=== PATIENT | male | born 1960 | race Caucasian/White ===

== ENCOUNTER → 2021-01-03 03:09 | Outpatient (CLI) | payer OTHER, SELFPAY ==
[2021-01-03 20:35] LABS: SARS-CoV-2 RNA PCR Negative
== END ==
PROVIDERS: Visit Provider Specialist
DX: Z01.812 Encounter for preprocedural laboratory examination (principal); Z20.822 Contact with and (suspected) exposure to COVID-19
CPT/HCPCS: C9803; U0003; U0005

== ENCOUNTER 2021-01-06 01:02 | Day surgery (SDC) | payer OTHER, SELFPAY ==
[2021-01-05 10:04] VITALS: BMI 31.5
[2021-01-06] VITALS (9 sets, daily range): BP systolic 113–141; BP diastolic 56–74; PULSE 68–81; RESP 15–16; TEMP 36.2–37.1; O2SAT 98–100
[2021-01-06 08:38] LABS: Basophils Percent Auto 0.7 % (0.2-1.2); Eosinophils Absolute Auto 0.2 K/mm3 (0-0.3); Eosinophils Percent Auto 5.3 % (0-4.4); Hemoglobin 11.1 g/dL (14.0-18.0); Immature Granulocyte Absolute 0.01 K/mm3 (0.00-0.031); Immature Granulocyte Percent A 0.2 % (0-0.5); Lymphocytes Percent Auto 16.9 % (18.3-44.2); Mean Corpuscular HGB Conc 31.7 g/dl (32-36); Mean Corpuscular Hemoglobin 27.8 pg (26-34); Mean Corpuscular Volume 87.7 fl (80-100); Monocytes Absolute Auto 0.5 K/mm3 (0.1-0.6); Monocytes Percent Auto 12.3 % (2.6-8.5); Neutrophils Absolute Auto 2.7 K/mm3 (1.3-6.7); Neutrophils Percent Auto 64.6 % (45.5-73.1); Platelet Count Result 123 k/mm3 (150-375); Red Blood Count 3.99 M/mm3 (4.6-6.20); Red Cell Distribution Width 15.9 % (11.5-14.5); White Blood Count 4.2 K/mm3 (4.5-10.0)
[2021-01-06 08:51] LABS: Anion Gap 3 mmol/L (8-16); Blood Urea Nitrogen 8 mg/dL (9-20); Calcium 8.9 mg/dL (8.4-10.2); Carbon Dioxide 25 mmol/L (22-30); Chloride 111 mmol/L (98-107); Estimated CRCL calculation 132 ml/min; Estimated Glomerular Filt Rate > 60; Glucose 107 mg/dL (75-110); Potassium 4.3 mmol/L (3.4-5.0); Sodium 139 mmol/L (137-145)
--- NOTE | 2021-01-06 09:17 | WPDMODSED ---
Moderate Sedation Note-Pt Data Patient Data Diagnosis: Exertional dyspnea/abnormal stress test Present Complaint: This is a 60-year-old patient reporting symptoms of exertional dyspnea. No previous documented history of cardiac disease. A nuclear stress test was performed at the request of his PCP which suggests the possibility of a previous anterior infarction. Because of this and angiogram has been recommended and scheduled for today. Procedure to be performed/Plan: Left heart catheterization Allergies Allergy/AdvReac Type Severity Reaction Status Date / Time Penicillins AdvReac Unknown Verified 01/06/21 08:54 Home Medications Medication Instructions Recorded Confirmed Type albuterol 90 mcg INHALATION PRN PRN 01/05/21 01/05/21 History amlodipine 5 mg PO DAILY 01/05/21 01/06/21 History budesonide-formoterol [Symbicort] 1 inh INHALATION PRN PRN 01/05/21 01/05/21 History colesevelam [WelChol] 1,875 mg PO BID 01/05/21 01/05/21 History dapagliflozin [Farxiga] 5 mg PO DAILY 01/05/21 01/05/21 History dulaglutide [Trulicity] 0.75 mg SUBCUT WEEKLY 01/05/21 01/05/21 History losartan 50 mg PO DAILY 01/05/21 01/06/21 History montelukast 10 mg PO DAILY 01/05/21 01/05/21 History omeprazole 40 mg PO DAILY 01/05/21 01/05/21 History Current Medications: Active Medications Sodium Chloride (Normal Saline Iv) 500 mls @ 100 mls/hr IV CONT .Q5H SOUTH Sedation/Anesthesia: No previous sedation/anesthesia problems (including family history). [facility] Social History Social History Smoking status: Never smoker Substance use: never Substance use type: does not use Living arrangements: with family Spiritual care concerns: No Mod Sed Physical Exam Physical Exam Pre Procedural Exam: Normal: Appearance, Neck, Throat, Airway, Lungs, Heart Size, Heart Rate, Heart Rhythm, Neuro Exam and Extremities Hours since solid foods: 12 Hours since liquid intake: 12 Internal Medicine - PN: Obj Da Vital Signs Vital Signs: Vital Signs - 24 hr 01/06/21 08:55 Temperature 37.1 C Pulse Rate 68 Respiratory Rate 15 Blood Pressure 113/74 Pulse Oximetry 98 Meds/Results Medications: Active Medications Generic Name Dose Route Start Last Admin Trade Name Freq PRN Reason Stop Dose Admin Sodium Chloride 500 mls @ 100 mls/hr 01/06/21 08:00 Normal Saline Iv IV CONT .Q5H SOUTH Labs CBC & Chem 7: 01/06/21 08:29 01/06/21 08:29 Labs: Laboratory Results - last 24 hr 01/06/21 01/06/21 08:29 08:29 WBC 4.2 L RBC 3.99 L Hgb 11.1 L Hct 35.0 L MCV 87.7 MCH 27.8 MCHC 31.7 L RDW 15.9 H Plt Count 123 L MPV 10.0 Immature Gran % (Auto) 0.2 Neut % (Auto) 64.6 Lymph % (Auto) 16.9 L Thurston % (Auto) 12.3 H Eos % (Auto) 5.3 H Baso % (Auto) 0.7 Lymph # (Auto) 0.70 L Thurston # (Auto) 0.5 Eos # (Auto) 0.2 Baso # (Auto) 0.0 Abs Immat Gran (auto) 0.01 Absolute Neuts (auto) 2.7 Absolute Nucleated RBC 0.0 Nucleated RBC % 0.0 Sodium 139 Potassium 4.3 Chloride 111 H Carbon Dioxide 25 Anion Gap 3 L BUN 8 L Creatinine 0.60 L Estim Creat Clear Calc 132 Estimated GFR > 60 Glucose 107 Calcium 8.9 ASA Classification/Sedation ASA Classification/Sedation ASA Class: II Emergent: No Risks: Risks, benefits and alternatives explained and patient/family accepted plan for sedation. Patient re-evaluated immediately prior to sedation.
--- NOTE | 2021-01-06 10:16 | WPDCARDPROC ---
Cardiac Cath Procedure Note Date of procedure:: 01/06/21 Performing physician:: Kai Ham MD Indication:: Exertional dyspnea, abnormal stress test Brief clinical history:: this is a 60-year-old man with a history of hypertension and dyslipidemia reporting exertional dyspnea of about 4-6 months of onset. Symptoms are worsening recently. Nuclear stress test was significantly abnormal prompting recommendation for angiography. Procedure Procedure performed:: Left ventriculography coronary angiography Angio-Seal to right femoral artery Sedation/Medication given:: fentanyl 50 mg Versed 2 mg case start time 9:49 a.m. case end time 10:08 a.m. sedation provided by Simran Vaca RN, trained observer Access site:: right femoral artery Estimated blood loss:: 10-15 cc Procedure note:: patient was brought to the cardiac catheterization lab in the postabsorptive state where the right femoral triangle was prepared and draped in the usual fashion. Anesthesia was provided with 1% lidocaine infiltrated locally. Using the modified Seldinger technique the right femoral artery was punctured and a 5 [place] vascular sheath was placed. After this left heart catheterization was carried out. A 5 [place] angled pigtail catheter was used to document left-sided hemodynamics and to injected LV g in the HAYES projection. After this the pigtail catheter was withdrawn. Five [place] FL4 catheter was used to engage inject the left coronary artery in multiple projections. After this a 5 [place] JR4 catheter was used to engage inject the right coronary artery. Following this the procedure was terminated the femoral artery was injected using the sheath for an angiogram and then a 6 [place] Angio-Seal device was deployed with a good hemostatic result. He left the manager labor delivery with no evidence of groin hematoma and no procedural complication. Procedure was tolerated well. Findings:: Hemodynamics: Central aortic pressure is 141/61 left ventricle 141/0 end-diastolic of 16 there is no systolic gradient upon pullback across the aortic valve. Left ventricle: During the left ventricular injection the patient had a run of ventricular tachycardia. After that run was over the LV contracts very well in all segments with no significant wall motion abnormalities and an ejection fraction I would visually estimated to be 65-70% The left coronary artery is moderately calcified proximally. The left main coronary artery is medium in caliber there is mild atherosclerotic narrowing of the distal portion of the left main potentially 30-40% stenosis. The left anterior descending is a medium caliber vessel extending down to around the apex. There is severe proximal atherosclerotic disease in the proximal LAD and in the proximal diagonal branch. There is 90-95% stenosis in the LAD after the major diagonal. The proximal portion of the diagonal has an area of ectatic aneurysmal dilatation as well. There is ANN MARIE 2 flow in the LAD distal to this high-grade lesion. The diagonal branch itself is a bifurcating vessel that has a proximal 99% stenosis. Circumflex is a medium caliber vessel there is a single bifurcating marginal branch that essentially is OM1 and OM2. Proximally this a bifurcating vessel has 80-90% stenosis. At the bifurcation point Marc branch which would be called OM1 has a proximal 90-95% stenosis. The more distal of the 2 branches has no significant lesion. The AV groove portion of the circumflex which is rather small has 80% diffuse stenosis in its midportion. The right coronary artery is large caliber dominant to the posterior circulation. The majority of the right coronary artery as diffuse mild luminal irregularities. In the 2nd portion of the RCA there is a spontaneous dissection with an area of ectatic dilatation. There is ANN MARIE 3 flow through this lesion however Conclusion:: 1. severe three-vessel coronary artery disease as desc
--- NOTE | 2021-01-06 14:44 | SUR.PHASEII ---
All D/C instructions reviewed with patient,allquestions answered at this time.
== END 2021-01-06 14:50 | disposition home or self-care (01) ==
PROVIDERS: PCP Physician Assistant; Visit Provider Specialist
PROC: 4A023N7 Measurement of Cardiac Sampling and Pressure, Left Heart, Percutaneous Approach (ICD-10-PCS; CPT 93452; principal; 2021-01-06 08:30)
DX: R94.39 Abnormal result of other cardiovascular function study (principal); R06.00 Dyspnea, unspecified; Z79.51 Long term (current) use of inhaled steroids; I10 Essential (primary) hypertension; E78.5 Hyperlipidemia, unspecified; I25.10 Atherosclerotic heart disease of native coronary artery without angina pectoris
CPT/HCPCS: 36415; 80048; 85025; 93458; C1760; C1887; C1894; C9803; G0269; J1644; J2250; J3010; J7040; U0003; U0005

== ENCOUNTER 2021-05-18 14:00 | Outpatient (RCR) | payer OTHER, SELFPAY | END 2021-05-18 19:30 | disposition home or self-care (01) | LOC: ANHCPREHAB 14:00 | PROVIDERS: PCP Physician Assistant; Visit Provider Specialist | DX: Z95.1 Presence of aortocoronary bypass graft (principal) | CPT/HCPCS: 93798 ==

== ENCOUNTER → 2021-05-29 08:48 | Outpatient (CLI) | payer OTHER, SELFPAY ==
[2021-05-29 20:15] LABS: SARS-CoV-2 RNA PCR Negative
== END ==
PROVIDERS: PCP Physician Assistant; Visit Provider Physician Assistant
DX: R68.89 Other general symptoms and signs (principal); Z20.822 Contact with and (suspected) exposure to COVID-19
CPT/HCPCS: C9803; U0003; U0005

== ENCOUNTER → 2021-11-25 08:03 | Outpatient (CLI) | payer OTHER, SELFPAY ==
[2021-11-25 23:19] LABS: SARS-CoV-2 RNA PCR Positive
== END ==
PROVIDERS: PCP Physician Assistant; Visit Provider Physician Assistant
DX: U07.1 COVID-19 (principal)
CPT/HCPCS: C9803; U0003; U0005

== ENCOUNTER 2022-01-01 00:32 | Day surgery (SDC) | payer OTHER, SELFPAY ==
[2021-12-21 08:36] VITALS: BMI 28.1
[2022-01-01 12:19] VITALS: BP 143/58; PULSE 58; RESP 17; TEMP 36.3; O2SAT 100
[2022-01-01] MEDS: LACTATED RINGERS 1,000 ML 150 ML IV CONT (12:32)
--- NOTE | 2022-01-01 12:36 | WPDGICN ---
Assessment and Plan Assessment and plan (1) Anemia: Code(s): D64.9 - Anemia, unspecified Status: Acute Assessment and Plan: Colonoscopy with possible biopsy or polypectomy or cautery or injection of substances. (2) GERD (gastroesophageal reflux disease): Code(s): K21.9 - Gastro-esophageal reflux disease without esophagitis Status: Acute Assessment and Plan: He has been taking omeprazole 40 mg daily but skipped it todayEGD with possible biopsy or dilatation or cautery. GI Consult Note Consult date/time: 01/01/22 12:36 HPI: Kai Null is a 61 year old male Who has been found to be anemic. His last hemoglobin on record was 11. He does not see blood in his stools. He also has acid reflux symptoms. He takes omeprazole 40 mg daily. He takes aspirin tablet once daily since he had a 4 vessel coronary artery bypass 1 year ago. Review of Systems Review of Systems: All systems reviewed & are unremarkable except as noted in HPI and below PMFSH Family History Family History Father High cholesterol Hypertension Heart disease Heart attack Diabetes mellitus Pulmonary disease Mother High cholesterol Hypertension Heart disease Heart attack Diabetes mellitus Pulmonary disease Social History Social History Smoking status: Never smoker Alcohol intake: current Alcohol use details: 1 per month Substance use: never Substance use type: does not use Living arrangements: with family Gender identity (if verbalized by the patient): Male Spiritual care concerns: No Meds Home Medications and Allergies Home Medications Medication Instructions Recorded Confirmed Type albuterol 90 mcg INHALATION PRN PRN 01/05/21 12/21/21 History budesonide-formoterol [Symbicort] 1 inh INHALATION PRN PRN 01/05/21 12/21/21 History colesevelam [WelChol] 1,875 mg PO BID 01/05/21 12/21/21 History dapagliflozin [Farxiga] 5 mg PO DAILY 01/05/21 12/21/21 History dulaglutide [Trulicity] 0.75 mg SUBCUT WEEKLY 01/05/21 12/21/21 History montelukast 10 mg PO DAILY 01/05/21 12/21/21 History omeprazole 40 mg PO DAILY 01/05/21 12/21/21 History aspirin 325 mg PO DAILY 02/20/21 12/21/21 History metoprolol tartrate 25 mg PO DAILY 02/20/21 12/21/21 History atorvastatin 40 mg PO DAILY 12/21/21 12/21/21 History ropinirole 2 mg PO DAILY 12/21/21 12/21/21 History Allergies Allergy/AdvReac Type Severity Reaction Status Date / Time Penicillins AdvReac Unknown Verified 01/01/22 12:18 Vital Signs Vital Signs - 24 hr 01/01/22 12:19 Temperature 36.3 C L Pulse Rate 58 L Respiratory Rate 17 Blood Pressure 143/58 H Pulse Oximetry 100 Exam Resp: Auscultation: clear to auscultation bilaterally Cardio: Rate: regular rate Rhythm: regular rhythm GI: GI Palp: Yes Soft to palpation and No Tenderness to palpation present (GI)
[2022-01-01] MEDS: BENZOCAINE (*SP) 60 ML SPRAY CAN (HURRICAINE) 1 SPRAY MUCOUS MEM (13:13)
--- NOTE | 2022-01-01 13:25 | SUR.OPER ---
EGD ENDED 1219, COLONOSCOPY STARTED 1324
[2022-01-01 13:34] VITALS: BP 114/41; PULSE 63; RESP 25; O2SAT 99
[2022-01-01 13:44] VITALS: BP 128/50; PULSE 62; RESP 21; O2SAT 100
[2022-01-01 13:48] LABS: Glucose Point of Care 78 mg/dl (65-105)
[2022-01-01 13:48] LABS: Glucose Point of Care 76 mg/dl (65-105)
[2022-01-01 13:54] VITALS: BP 140/67; PULSE 57; RESP 17; O2SAT 100
== END 2022-01-01 14:04 | disposition home or self-care (01) ==
PROVIDERS: PCP Physician Assistant; Visit Provider Internal Medicine Gastroenterology
PROC: 0DJ08ZZ Inspection of Upper Intestinal Tract, Via Natural or Artificial Opening Endoscopic (ICD-10-PCS; CPT 43235; principal; 2022-01-01 13:30)
DX: Z12.11 Encounter for screening for malignant neoplasm of colon (principal); K29.80 Duodenitis without bleeding; D64.9 Anemia, unspecified; K21.9 Gastro-esophageal reflux disease without esophagitis; Z95.1 Presence of aortocoronary bypass graft; Z79.82 Long term (current) use of aspirin; Z79.51 Long term (current) use of inhaled steroids; Z79.84 Long term (current) use of oral hypoglycemic drugs
CPT/HCPCS: 45378; 43239; 82948; 88305; J2704; J7120

== ENCOUNTER 2022-01-11 15:26 | Outpatient (CLI) | payer OTHER, SELFPAY ==
--- NOTE | ~2022-01-11 | CT_ITS ---
EXAMINATION: CT abdomen pelvis w con DATE: 01/11/2022 16:04 INDICATION: Elevated liver enzymes. Abdomen pain. TECHNIQUE: Computed tomography (CT) of the abdomen and pelvis was performed with 100 cc Omnipaque 350 intravenous contrast. The dose-length product was 976.87 mGy-cm. Automated exposure control and iter ative reconstruction technique were employed. COMPARISON: Ultrasound dated 01/11/2022. FINDINGS: There is cirrhosis of the liver with evidence for portal hypertension. There is splenomegal y. Multiple collateral vessels are noted in the upper abdomen. There is small amount of ascites. The pancreas, adrenal glands and right kidney are unremarkable. There is a 2 mm nonobstructing left renal stone. There is moderate fluid throughout the small bowel with air-fluid levels, most likely ileus. There is colonic fecal loading. No free air. Gallbladder is present. Mild subcutaneous edema. There a re gallstones. Mild-moderate lumbar spondylosis. Small fat-containing umbilical hernia. IMPRESSION: 1. Cirrhosis with portal hypertension and splenomegaly. Small amount of ascites. 2: Nonobstructing 2 mm left renal stone. 3: Cholelithiasis. 4: Nonspecific air-fluid levels throughout the small bowel, likely ileus. Partial obstruction less f avored although not excluded. Reviewed, dictated and finalized at location A. SUGAR CUTTER IMPRESSION: 1. Cirrhosis with portal hypertension and splenomegaly. Small amount of ascites . 2: Nonobstructing 2 mm left renal stone. 3: Cholelithiasis. 4: Nonspecific air-fluid levels throughout the small bowel, likely ileus. Part ial obstruction less favored although not excluded.
[2022-01-11 15:52] LABS: Estimated Glomerular Filt Rate > 60
== END 2022-01-11 15:27 ==
PROVIDERS: PCP Physician Assistant; Visit Provider Internal Medicine Medical Oncology
DX: R74.01 Elevation of levels of liver transaminase levels (principal); R63.4 Abnormal weight loss; R10.9 Unspecified abdominal pain; R16.1 Splenomegaly, not elsewhere classified; K74.60 Unspecified cirrhosis of liver; N20.0 Calculus of kidney; K80.20 Calculus of gallbladder without cholecystitis without obstruction; M47.816 Spondylosis without myelopathy or radiculopathy, lumbar region
CPT/HCPCS: 74177; Q9967

== ENCOUNTER 2022-03-12 15:22 | Outpatient (CLI) | payer OTHER, SELFPAY ==
--- NOTE | ~2022-03-12 | CT_ITS ---
EXAMINATION: CT abdomen pelvis w con INDICATION: Right inguinal hernia TECHNIQUE: Computed tomographic images of the abdomen and pelvis were obtained after the administrati on of 100 cc of Omnipaque 350 intravenous contrast. The dose-length product (DLP) was 743.10 mGy-cm. Automated exposure control and iterative reconstruction technique were employed. COMPARISON: 01/11/2022 FINDINGS: Minimal dependent atelectasis is present in the lung bases. The heart size is normal. There is nodularity of the liver surface. Portal hypertension is noted as evidenced by enlargement of the portal vein, splenomegaly, and upper abdominal and periesophageal varices. Stones are present in the nondistended gallbladder. The pancreas and adrenal glands are normal. The kidneys are unremarkable. N o pathologically enlarged abdominal or pelvic lymph nodes are identified. There is no free intraperit sky gas or evidence of bowel obstruction. There is a small right inguinal hernia containing fat and a small volume of ascites. There is a small umbilical hernia containing fat. There is moderate lumba r spondylosis. IMPRESSION: 1. Small right inguinal hernia containing fat and a small volume of ascites. 2. Cirrhosis with portal hypertension. 3. Cholelithiasis. Reviewed, dictated and finalized at location A.
[2022-03-12 15:38] LABS: Estimated Glomerular Filt Rate > 60
== END 2022-03-12 15:23 ==
PROVIDERS: PCP Physician Assistant; Visit Provider Physician Assistant
DX: K40.90 Unilateral inguinal hernia, without obstruction or gangrene, not specified as recurrent (principal); K80.20 Calculus of gallbladder without cholecystitis without obstruction; K74.60 Unspecified cirrhosis of liver; K76.6 Portal hypertension
CPT/HCPCS: 74177; Q9967

== ENCOUNTER 2022-04-06 10:26 | Outpatient (CLI) | payer OTHER, SELFPAY ==
--- NOTE | 2022-04-06 10:37 | ECG_ITS ---
Measurements Intervals Pitcher Rate: 65 P: 68 AL: 153 QRS: -14 QRSD: 102 T: 43 QT: 406 QTc: 423 Interpretive Statements SINUS RHYTHM POSSIBLE LEFT ATRIAL ENLARGEMENT BASELINE ARTIFACT- I, II, III, AVR, AVL BORDERLINE ECG Electronically Signed On 04-06-2022 17:12:11 CDT by Arturo Lambert D.O.
[2022-04-06 10:58] LABS: Basophils Percent Auto 0.6 % (0.2-1.2); Eosinophils Absolute Auto 0.2 K/mm3 (0-0.3); Eosinophils Percent Auto 6.6 % (0-4.4); Hematocrit 34.1 % (42.0-52.0); Hemoglobin 10.8 g/dL (14.0-18.0); Immature Granulocyte Absolute 0.01 K/mm3 (0.00-0.031); Immature Granulocyte Percent A 0.3 % (0-0.5); Lymphocytes Absolute Auto 0.58 K/mm3 (0.9-3.2); Lymphocytes Percent Auto 17.5 % (18.3-44.2); Mean Corpuscular HGB Conc 31.7 g/dl (32-36); Mean Corpuscular Hemoglobin 31.1 pg (26-34); Mean Corpuscular Volume 98.3 fl (80-100); Mean Platelet Volume 11.8 fl (7.4-10.4); Monocytes Absolute Auto 0.5 K/mm3 (0.1-0.6); Monocytes Percent Auto 13.6 % (2.6-8.5); Neutrophils Percent Auto 61.4 % (45.5-73.1); Platelet Count Result 74 k/mm3 (150-375); Red Blood Count 3.47 M/mm3 (4.6-6.20); Red Cell Distribution Width 15.2 % (11.5-14.5); White Blood Count 3.3 K/mm3 (4.5-10.0)
[2022-04-06 11:07] LABS: INR 1.4; Prothrombin Time 16.3 Seconds (11.1-14.7)
[2022-04-06 11:17] LABS: Anion Gap 3 mmol/L (8-16); Blood Urea Nitrogen 11 mg/dL (9-20); Carbon Dioxide 20 mmol/L (22-30); Chloride 118 mmol/L (98-107); Estimated Glomerular Filt Rate > 60; Glucose 75 mg/dL (65-110); Sodium 141 mmol/L (137-145)
== END 2022-04-06 10:27 | disposition home or self-care (01) ==
LOC: ANHSURGERY 10:29
PROVIDERS: Anesthesiology; PCP Physician Assistant; Visit Provider Surgery
DX: Z01.818 Encounter for other preprocedural examination (principal); E11.9 Type 2 diabetes mellitus without complications; I10 Essential (primary) hypertension; K40.90 Unilateral inguinal hernia, without obstruction or gangrene, not specified as recurrent
CPT/HCPCS: 36415; 80048; 85025; 85610; 86850; 86900; 86901; 93005

== ENCOUNTER 2022-06-25 12:13 | Emergency (ER) | payer OTHER, SELFPAY ==
--- NOTE | ~2022-06-25 | CT_ITS ---
EXAMINATION: CT abdomen pelvis wo con DATE: 06/25/2022 14:18 INDICATION: Microscopic hematuria and groin pain TECHNIQUE: Computed tomography (CT) of the abdomen and pelvis was performed without intravenous contr ast. Automated exposure control and iterative reconstruction technique were employed. The dose-length product was 472.72 mGy-cm. COMPARISON: 03/12/2022 FINDINGS: Lung bases are clear. Visualized inferior heart is normal. Postoperative change of prior median antoine otomy and likely coronary artery bypass grafting. No pericardial or pleural effusion. Shrunken, nodul ar cirrhotic liver. Secondary portal venous hypertension with splenomegaly, splenorenal collaterals a nd gastroesophageal varices. Multiple calcified gallstones layering in the dependent neck of the othe rwise normal-appearing gallbladder. No gallbladder dilation, wall thickening or pericholecystic infla mmatory stranding to suggest acute cholecystitis. Pancreas and bilateral adrenal glands are normal. 2 mm nonobstructing stone at the upper pole calyx of the left kidney. No other urolithiasis at the nor mal right kidney or along the course of the bilateral ureters. No hydronephrosis. Bladder is normal. Normal appendix. No bowel obstruction. There are few scattered colonic diverticula without adjacent i nflammatory change to suggest diverticular colitis. Tiny fat-containing umbilical hernia and small fa t-containing indirect right inguinal hernia. There is mild mesenteric edema and minimal pelvic ascite s. No free intraperitoneal gas. No pathologically enlarged abdominal or pelvic lymphadenopathy. Mild lumbar dextrocurvature with moderate spondylosis. IMPRESSION: 1. Cirrhosis. 2. Splenomegaly, splenorenal collaterals and gastroesophageal varices consistent with secondary jose r l venous hypertension. 3. Cholelithiasis. 4. Nonobstructing 2 mm left renal stone. 5. Very small fat-containing umbilical hernia and small fat-containing right indirect inguinal hernia . Reviewed, dictated and finalized at location A. IMPRESSION: 1. Cirrhosis. 2. Splenomegaly, splenorenal collaterals and gastroesophageal varices consisten t with secondary portal venous hypertension. 3. Cholelithiasis. 4. Nonobstructing 2 mm left renal stone. 5. Very small fat-containing umbilical hernia and small fat-containing right in direct inguinal hernia.
[2022-06-25 12:16] VITALS: BP 156/61; PULSE 63; RESP 16; TEMP 36.6; O2SAT 99
[2022-06-25 12:34] LABS: Basophils Percent Auto 0.5 % (0.2-1.2); Eosinophils Absolute Auto 0.2 K/mm3 (0-0.3); Eosinophils Percent Auto 5.4 % (0-4.4); Hematocrit 36.3 % (42.0-52.0); Hemoglobin 11.4 g/dL (14.0-18.0); Immature Granulocyte Absolute 0.01 K/mm3 (0.00-0.031); Immature Granulocyte Percent A 0.3 % (0-0.5); Immature Platelet Fraction Pct 4.2 % (0.9-11.2); Lymphocytes Absolute Auto 0.66 K/mm3 (0.9-3.2); Mean Corpuscular HGB Conc 31.4 g/dl (32-36); Mean Corpuscular Hemoglobin 29.8 pg (26-34); Mean Corpuscular Volume 94.8 fl (80-100); Mean Platelet Volume 12.7 fl (7.4-10.4); Monocytes Absolute Auto 0.5 K/mm3 (0.1-0.6); Monocytes Percent Auto 13.1 % (2.6-8.5); Neutrophils Absolute Auto 2.5 K/mm3 (1.3-6.7); Neutrophils Percent Auto 63.7 % (45.5-73.1); Platelet Count Result 74 k/mm3 (150-375); Red Blood Count 3.83 M/mm3 (4.6-6.20); Red Cell Distribution Width 17.3 % (11.5-14.5); White Blood Count 3.9 K/mm3 (4.5-10.0)
[2022-06-25 12:41] LABS: Alanine Aminotransferase 43 U/L (6-50); Albumin Level 3.6 g/dL (3.5-5.1); Alkaline Phosphatase 272 U/L (38-126); Anion Gap 7 mmol/L (8-16); Aspartate Amino Transferase 51 U/L (17-59); Bilirubin,Total 1.3 mg/dL (0.2-1.3); Blood Urea Nitrogen 10 mg/dL (9-20); Calcium 8.7 mg/dL (8.4-10.2); Carbon Dioxide 20 mmol/L (22-30); Chloride 110 mmol/L (98-107); Estimated CRCL calculation 86 ml/min; Estimated Glomerular Filt Rate > 60; Glucose 100 mg/dL (65-110); Lipase 201 U/L (23-300); Potassium 4.3 mmol/L (3.4-5.0); Sodium 137 mmol/L (137-145)
[2022-06-25 12:44] LABS: Appearance Urine Slightly Cloudy (Clear); Bilirubin Urine 1+ (Negative); Blood Urine 2+ (Negative); Color Urine Yellow (Yellow); Glucose Urine UA 3+ mg/dL (Negative); Ketones Urine Negative (Negative); Leukocyte Esterase Ur Negative LEU/UL (Negative); Nitrate Urine Negative (Negative); Protein Urine 1+ mg/dL (Negative); Specific Grav Ur >= 1.030 (1.001-1.035); pH Urine 5.5 (5.0-9.0)
[2022-06-25 12:47] LABS: Bacteria Urine Trace /hpf; Mucus Urine Moderate /lpf; RBC Urine 21-50 /hpf (0-2); Squamous Epithelial Cell Urine Rare /hpf (Few)
[2022-06-25 12:48] LABS: Add Urine Microscopic? YES
--- NOTE | 2022-06-25 13:58 | ED.GENADULT ---
HPI - General Adult General Chief complaint: Abdominal Pain Stated complaint: hernia and abdominal pain Time Seen by Provider: 06/25/22 13:06 History of Present Illness HPI narrative: Patient is a 62-year-old male who presents to the ER with discomfort to his right inguinal hernia. This been a chronic issue. He was recently supposed to have surgery but his platelets were too low so they canceled the surgery. She is currently scheduled to have surgery in 2 weeks. He has no fevers or chills or sweats. He reports that hernia is really usable. He is passing gas. He has had a little bit of nausea but no vomiting. No fevers or chills or sweats. He reports the pain is worse when he stands up and his hernia gets bigger. He has had no constipation. He has not been using any stool softeners. He has not been wearing a hernia girdle. Related Data Home Medications Medication Instructions Recorded Confirmed albuterol 90 mcg/actuation aerosol 90 mcg inhalation PRN PRN 01/05/21 05/15/22 inhaler Shortness Of Breath Or Wheezing budesonide-formoterol HFA 160 1 inh inhalation PRN PRN Shortness 01/05/21 05/15/22 mcg-4.5 mcg/actuation aerosol Of Breath Or Wheezing inhaler (Symbicort) colesevelam 625 mg tablet (WelChol) 1,875 mg PO BID 01/05/21 05/15/22 dapagliflozin 5 mg tablet (Farxiga) 5 mg PO QAM 01/05/21 05/15/22 dulaglutide 0.75 mg/0.5 mL 0.75 mg subcut WEEKLY 01/05/21 05/15/22 subcutaneous pen injector ([facility]) montelukast 10 mg tablet 10 mg PO DAILY 01/05/21 05/15/22 omeprazole 40 mg capsule,delayed 40 mg PO DAILY 01/05/21 05/15/22 release aspirin 325 mg tablet 325 mg PO DAILY 02/20/21 05/15/22 metoprolol tartrate 25 mg tablet 25 mg PO BID 02/20/21 05/15/22 atorvastatin 40 mg tablet 40 mg PO DAILY 12/21/21 05/15/22 Allergies Allergy/AdvReac Type Severity Reaction Status Date / Time Penicillins AdvReac Unknown Verified 05/15/22 13:59 Review of Systems Review of Systems: All systems reviewed & are unremarkable except as noted in HPI and below Constitutional: Constitutional: Denies chills and Denies fever(s) Cardiovascular: Cardiovascular: Denies chest pain, Denies rapid heart rate and Denies radiating jaw, neck or arm pain Respiratory: Respiratory: Denies cough and Denies dyspnea Gastrointestinal: Gastrointestinal: Denies abdominal pain, Denies constipation, Denies diarrhea, Reports nausea and Denies vomiting Comments: Right inguinal hernia Genitourinary: Genitourinary: Denies oliguria, Denies dysuria and Denies testicular pain Neurologic: Denies headache(s), Denies focal weakness and Denies numbness PMFSH Past Medical History Medical History Asthma Diabetes High cholesterol Hypertension Kidney stones Surgical History Surgical History H/O eye surgery History of quadruple bypass Family History Family History Father Hypertension Heart disease Heart attack Mother Hypertension Social History Social History Smoking status: Never smoker Alcohol intake: current Alcohol use details: 1 per month Substance use: never Substance use type: does not use Additional living arrangements comments: GIRLFRIEND Gender identity (if verbalized by the patient): Male Spiritual care concerns: No Exam Narrative: GENERAL: Well-appearing, well-nourished, and in no acute distress. HEAD: Normocephalic, atraumatic. CHEST: Clear to auscultation. No respiratory distress. HEART: Regular rate and rhythm. Normal peripheral pulses. ABDOMEN: Soft, nontender, nondistended. Easily reducible right inguinal hernia. Bowel sounds present. EXTREMITIES: Normal range of motion. No edema. SKIN: Warm, dry, no rash. NEURO: Alert and oriented x3. PSYCH: Normal mood and affect. Course Course E
--- NOTE | 2022-06-25 14:11 | PC.NURSE ---
Patient off unit to CT.
== END 2022-06-25 15:36 | disposition home or self-care (01) ==
PROVIDERS: Emergency Provider Emergency Medicine; PCP Physician Assistant
DX: K40.90 Unilateral inguinal hernia, without obstruction or gangrene, not specified as recurrent (principal); J45.909 Unspecified asthma, uncomplicated; E11.9 Type 2 diabetes mellitus without complications; E78.5 Hyperlipidemia, unspecified; I10 Essential (primary) hypertension; Z87.442 Personal history of urinary calculi
CPT/HCPCS: 36415; 74176; 80053; 81001; 83690; 85025; 85055; 99284

== ENCOUNTER 2022-12-20 09:01 | Outpatient (CLI) | payer OTHER, SELFPAY ==
--- NOTE | ~2022-12-20 | XR_ITS ---
EXAMINATION: XR chest 2V DATE: 12/20/2022 09:14 INDICATION: Shortness of breath, pedal edema TECHNIQUE: PA and lateral views of the chest are obtained. COMPARISON: None available FINDINGS: The lungs are free of acute opacities. No pleural effusion or pneumothorax. The heart size is normal. Median sternotomy wires and mediastinal surgical clips are seen, likely from prior coronar y artery bypass grafting. There are bridging osteophytes at multiple levels in the spine, consistent with diffuse idiopathic skeletal hyperostosis (DISH). IMPRESSION: 1. No acute cardiopulmonary abnormality. Reviewed, dictated and finalized at location D. AZZO [employer]ER HELPER
== END 2022-12-20 09:02 ==
LOC: MICIMG 09:03
PROVIDERS: PCP Physician Assistant; Visit Provider Physician Assistant
DX: R06.00 Dyspnea, unspecified (principal)
CPT/HCPCS: 71046

== ENCOUNTER 2023-03-25 16:12 | Outpatient (CLI) | payer OTHER, SELFPAY ==
--- NOTE | ~2023-03-25 | XR_ITS ---
EXAMINATION: XR chest 2V DATE: 03/25/2023 16:40 INDICATION: Cough TECHNIQUE: frontal and lateral views of the chest were obtained. COMPARISON: Chest radiograph dated 12/21/2022 FINDINGS: Increasing hazy opacity at the bilateral lower lung zones without evident correlate on the lateral pr ojection and with sharply defined margins which could be related to skin folds. The cardiomediastinal silhouette is normal. Median sternotomy wires and mediastinal surgical clips are seen, likely from p rior coronary artery bypass grafting. There are bridging osteophytes at multiple levels in the spine, consistent with diffuse idiopathic skeletal hyperostosis (DISH). IMPRESSION: 1. Subtle opacities project over the bilateral lower lung zones more likely artifact of soft tissues from the superimposed anterior or posterior chest wall bounded by skinfolds although differential wou ld include less likely pneumonia. Reviewed, dictated and finalized at location A. IMPRESSION: 1. Subtle opacities project over the bilateral lower lung zones more likely art ifact of soft tissues from the superimposed anterior or posterior chest wall karla unded by skinfolds although differential would include less likely pneumonia.
== END 2023-03-25 16:13 ==
PROVIDERS: PCP Physician Assistant; Visit Provider Physician Assistant
DX: R05.9 Cough, unspecified (principal); R91.8 Other nonspecific abnormal finding of lung field
CPT/HCPCS: 71046

== ENCOUNTER 2024-04-22 11:47 | Outpatient (CLI) | payer OTHER, SELFPAY ==
--- NOTE | ~2024-04-22 | XR_ITS ---
XR cervical spine min 6V 04/22/2024 12:13 Indication: Neck pain Procedure: 8 views cervical spine including flexion/extension views Comparison: No prior studies for comparison. Findings: Straightening of cervical lordosis. There is disc narrowing at C5-6 and C6-7. No prevertebr al soft tissue swelling. There is severe multilevel facet hypertrophy. There is moderate multilevel u ncinate hypertrophy. Odontoid process is normal. No significant alteration of alignment with flexion/ extension. Lung apices are normal. Impression: 1: Severe cervical spondylosis. Reviewed, dictated and finalized at location B. Impression: 1: Severe cervical spondylosis.
== END 2024-04-22 11:48 ==
LOC: MICIMG 11:48
PROVIDERS: PCP Chiropractor; Visit Provider Chiropractor
DX: M47.892 Other spondylosis, cervical region (principal)
CPT/HCPCS: 72052

== ENCOUNTER 2024-10-26 15:26 | Outpatient (CLI) | payer OTHER, SELFPAY ==
--- NOTE | ~2024-10-26 | CT_ITS ---
EXAMINATION:CT diagnostic chest wo con DATE: 10/26/2024 16:25 INDICATION: Chronic cough. TECHNIQUE: Computed tomography (CT) of the chest was performed without intravenous contrast. Automate d exposure control and iterative reconstruction technique were employed. The dose-length product (DLP ) was 179.43 mGy-cm. COMPARISON: CT abdomen and pelvis 06/25/2022 FINDINGS: There is a 3 mm nodule in right middle lobe, likely benign. There are mild patchy groundgla ss opacities in the lungs bilaterally with an upper lobe predominance. No pleural effusion. The heart size is normal. There are coronary artery calcifications. There are changes of coronary artery bypas s grafting. No pericardial effusion. There is liver surface nodularity, consistent with cirrhosis. Th ere are gallstones in the gallbladder. Gallbladder distention may be secondary to fasting. Splenomega ly is noted. There is mild thoracic spondylosis. IMPRESSION: 1. Mild diffuse lung disease, consistent with mild pulmonary edema versus atypical pneumonia. 2. Cirrhosis of the liver with portal venous hypertension. Reviewed, dictated and finalized at location A. TESTER IMPRESSION: 1. Mild diffuse lung disease, consistent with mild pulmonary edema versus atypi oscar pneumonia. 2. Cirrhosis of the liver with portal venous hypertension.
== END 2024-10-26 15:27 | disposition home or self-care (01) ==
PROVIDERS: PCP Physician Assistant; Visit Provider Physician Assistant
DX: K74.60 Unspecified cirrhosis of liver (principal); K76.6 Portal hypertension; J98.4 Other disorders of lung
CPT/HCPCS: 71250

== ENCOUNTER 2025-03-17 13:31 | Outpatient (CLI) | payer OTHER, SELFPAY ==
--- OUTSIDE RECORDS SUMMARY | 2025-03-17 13:42 | XMS_ITS | Data Portability ---
Author Organization [place] [facility], Main Office Address [address] [place] [address] Assessment Encounter Date Assessment Date Assessment LastModified by Organization Details LastModified Time 08/23/2023 08/23/2023 psa 2022 wnl [email or web address] Not available 08/23/2023 16:54:33 Plan of Treatment Reminders Order Date Submit Date Provider Last Modified By Organization Details Last Modified Time Details Appointments None recorded. Lab CMP, serum or plasma 2022 023 [email or web address] [facility], 2022 N[address], [address], [place], [address], 3 09:35:41 TSH + free T4, serum 2022 023 LOU [facility], 2022 [address], [address], [place], [address], 3 09:43:32 lipid panel, serum 2022 023 [email or web address] [facility], 2022 [address], [address], [place], [address], 3 09:36:22 CBC w/ auto diff 2022 023 [email or web address] [facility], 2022 N[address], [address], [place], [address], 3 09:35:49 HbA1c (hemoglobi n A1c), blood 2022 023 [email or web address] [facility], 2022 N[address], [address], [place], [address], 3 09:36:14 microalbum in, urine 2022 023 [email or web address] [facility], 2022 N[address] Martinez, [address], [place], [address], 3 09:36:30 iron + total iron-shaheen ng capacity (TIBC), serum 2022 023 [email or web address] [facility], 2022 N[address] Martinez, [address], [place], [address], 3 09:35:57 ferritin, serum or plasma 2022 023 [email or web address] [facility], 2022 N[address], [address], [place], [address], 3 09:36:06 CMP, serum or plasma 2022 023 penny 146 [facility], 2022 Nabil Martinez, [address], [place], [address], 3 12:24:13 PT/PTT, plasma 2022 023 penny 146 [facility], 2022 Nabil Martinez, [address], [place], [address], 3 12:24:14 INR, plasma [facility], 2022 Nbail Martinez, [address], [place], [address], 3 12:24:15 TSH + free T4, serum 2022 023 LOU [facility], 2022 N[address] Martinez, [address], [place], [address], 3 08:44:14 lipid panel, serum 2022 023 [email or web address], 2022 Nabil Martinez, [address], [place], [address], 3 12:24:14 CBC w/ auto diff 2022 023 [email or web address] [address] [facility], 2022 N[address] Martinez, [address], [place], [address], 3 12:24:13 HbA1c (hemoglobi n A1c), blood 2022 023 [place] [address] [facility], 2022 Nabil Martinez, [address], [place], [address], 3 12:24:14 iron + total iron-shaheen ng capacity (TIBC), serum 2022 023 [place] [address] [facility], 2022 N[address] Martinez, [address], [place], [address], 3 12:24:13 ferritin, serum or plasma 2022 023 [place] [address] [facility], 2022 Nabil Martinez, [address], [place], [address], 3 12:24:14 Referral None recorded. Procedures None recorded. Surgeries None recorded. Imaging XR, chest, 2 view 2022 023 [facility], 2022 Cecilia Martinez, [address], [place], [address], 3 09:43:12 Medication Orders None recorded. Patient TargetsNo targets recorded. Patient InstructionsNo instructions recorded. Reason for Referral None Reported. Results Created Date Observation Date Name Description Value Unit Range Abnormal Flag Note LastModifiedBy Organization Detail LastModifiedTime 02/25/20 22 02/24/2022 MAGALY Butt LP DEFAU LT magaly gastelum LP default commen t A hand- writt en panel /prof ile was recei nina from your offic e. In accor dance with the [facility] Ambig uous Test Code Polic y dated May 2003, we have compl eted your order by using the close st curre ntly or forme rly recog nized AMA panel . We have assalysha farr Lipid Panel , Test Code #[address]. If this is not the testi ng you wishe d to recei ve on this speci men, pleas e conta ct the [facility] Clien t Inqui ry/Te chnic al Servi leah Depar tment to yeny fy the test order . We appre ciate your busin ess. Not Available [facility] ([facility]) [address], [place], [address], 02/25/2022 08:11:37 02/25/20 22 02/24/2022 AMBALYSHA ABBRE V CMP14 DEFAU LT ambig abbrev CMP14 default commen t A hand- writt en panel /prof ile was recei nina from your offic e. In accor dance with the [facility] Ambig uous Test Code Polic y dated May 2003, we have compl eted your order by using the close st curre ntly or forme rly recog nized AMA panel . We have katharina farr Compr ehens devan Metab olic Panel (14), Test Code #[address]. If this is not the testi ng you wishe d to recei ve on this speci men, pleas e conta ct the [facility] Clien t Inqui ry/Te chnic al Servi leah Depar tment to yeny fy the test order . We appre ciate your busin ess. Not Available [facility] ([facility]) [address], [place], [address], 02/25/2022 08:11:37 02/25/20 22 02/25/2022 HEMOG LOBIN A1C hemoglobin A1C 5.1 % 4.8-5. 6 Predi abete s: 5.7 - 6.4 Diabe nelda: >6.4 Glyce davian contr ol for adult s with diabe nelda: <7.0 Not Available [facility] ([facility]) [address] [place], [address], 02/25/2022 08:11:36 02/25/20 22 02/25/2022 LIPID PANEL cholesterol, total 110 mg/dL 100-19 9 Not Available [facility] ([facility]) [address] [place], [address], 02/25/2022 08:11:36 02/25/20 22 02/25/2022 LIPID PANEL triglyceride s 52 mg/dL 0-149 Not Available [facility] ([facility]) [address] [place], [address], 02/25/2022 08:11:36 02/25/20 22 02/25/2022 LIPID PANEL HDL cholesterol 72 mg/dL >39 Not Available [facility] ([facility]) [address] [place], [address], 02/25/2022 08:11:36 02/25/20 22 02/25/2022 LIPID PANEL VLDL cholesterol oscar 12 mg/dL 5-40 Not Available [facility] ([facility]) [address] [place], [address], 02/25/2022 08:11:36 02/25/20 22 02/25/2022 LIPID PANEL LDL chol calc ([facility]) 26 mg/dL 0-99 Not Available [facility] ([facility]) [address] [place], [address], 02/25/2022 08:11:36 02/25/20 22 02/25/2022 LIPID 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 METAB OLIC PANEL (14) glucose 98 mg/dL 65-99 Not Available [facility] ([facility]) [address] [place], [address], 02/25/2022 08:11:36 02/25/20 22 02/25/2022 COMP. METAB OLIC PANEL (14) BUN 8 mg/dL 8-27 Not Available [facility] ([facility]) [address] [place], [address], 02/25/2022 08:11:36 02/25/20 22 02/25/2022 COMP. METAB OLIC PANEL (14) creatinine 0.66 mg/dL 0.76-1 .27 below low normal Not Available [facility] ([facility]) [address] [place], [address], 02/25/2022 08:11:36 02/25/20 22 02/25/2022 COMP. METAB OLIC PANEL (14) eGFR 107 mL/mi n/1.7 3 >59 Not Available [facility] ([facility]) [address] [place], [address], 02/25/2022 08:11:36 02/25/20 22 02/25/2022 COMP. METAB OLIC PANEL (14) BUN/creatini ne ratio 12 10-24 Not Available [facility] ([facility]) [address] [place], [address], 02/25/2022 08:11:36 02/25/20 22 02/25/2022 COMP. METAB OLIC PANEL (14) sodium 145 mmol/ L 134-14 4 above high normal Not Available [facility] ([facility]) [address] [place], [address], 02/25/2022 08:11:36 02/25/20 22 02/25/2022 COMP. METAB OLIC PANEL (14) potassium 4.5 mmol/ L 3.5-5. 2 Not Available [facility] ([facility]) [address] [place], [address], 02/25/2022 08:11:36 02/25/20 22 02/25/2022 COMP. METAB OLIC PANEL (14) chloride 113 mmol/ L 96-106 above high normal Not Available [facility] ([facility]) [address] [place], [address], 02/25/2022 08:11:36 02/25/20 22 02/25/2022 COMP. METAB OLIC PANEL (14) carbon dioxide, total 19 mmol/ L 20-29 below low normal Not Available [facility] ([facility]) [address] [place], [address], 02/25/2022 08:11:36 02/25/20 22 02/25/2022 COMP. METAB OLIC PANEL (14) calcium 8.6 mg/dL 8.6-10 .2 Not Available [facility] ([facility]) [address] [place], [address], 02/25/2022 08:11:36 02/25/20 22 02/25/2022 COMP. METAB OLIC PANEL (14) protein, total 6.5 g/dL 6.0-8. 5 Not Available [facility] ([facility]) [address] [place], [address], 02/25/2022 08:11:36 02/25/20 22 02/25/2022 COMP. METAB OLIC PANEL (14) albumin 3.6 g/dL 3.8-4. 8 below low normal Not Available [facility] ([facility]) [address] [place], [address], 02/25/2022 08:11:36 02/25/20 22 02/25/2022 COMP. METAB OLIC PANEL (14) globulin, total 2.9 g/dL 1.5-4. 5 Not Available [facility] ([facility]) [address] [place], [address], 02/25/2022 08:11:36 02/25/20 22 02/25/2022 COMP. METAB OLIC PANEL (14) A/G ratio 1.2 1.2-2. 2 Not Available [facility] ([facility]) [address] [place], [address], 02/25/2022 08:11:36 02/25/20 22 02/25/2022 COMP. METAB OLIC PANEL (14) bilirubin, total 1.7 mg/dL 0.0-1. 2 above high normal Not Available [facility] ([facility]) [address] [place], [address], 02/25/2022 08:11:36 02/25/20 22 02/25/2022 COMP. METAB OLIC PANEL (14) alkaline phosphatase 337 IU/L 44-121 above high normal Not Available [facility] ([facility]) [address] [place], [address], 02/25/2022 08:11:36 02/25/20 22 02/25/2022 COMP. METAB OLIC PANEL (14) AST (SGOT) 61 IU/L 0-40 above high normal Not Available [facility] ([facility]) [address] [place], [address], 02/25/2022 08:11:36 02/25/20 22 02/25/2022 COMP. METAB OLIC PANEL (14) ALT (SGPT) 41 IU/L 0-44 Not Available [facility] ([facility]) [address] [place], [address], 02/25/2022 08:11:36 02/25/20 22 02/25/2022 TSH+F REE T4 TSH 2.230 uIU/m L 0.450- 4.500 Not Available [facility] ([facility]) [address] [place], [address], 02/25/2022 08:11:35 02/25/20 22 02/25/2022 TSH+F REE T4 T4,free(dire ct) 1.10 NG/dL 0.82-1 .77 Not Available [facility] ([facility]) [address] [place], [address], 02/25/2022 08:11:35 02/25/20 22 02/25/2022 FE+TI BC+FE R iron bind.cap.(TI BC) 262 ug/dL 250-45 0 Not Available [facility] ([facility]) [address] [place], [address], 02/25/2022 08:11:35 02/25/20 22 02/25/2022 FE+TI BC+FE R UIBC 217 ug/dL 111-34 3 Not Available [facility] ([facility]) [address], [place], [address], 02/25/2022 08:11:35 02/25/20 22 02/25/2022 FE+TI BC+FE R iron 45 ug/dL 38-169 Not Available [facility] ([facility]) [address] [place], [address], 02/25/2022 08:11:35 02/25/20 22 02/25/2022 FE+TI BC+FE R iron saturation 17 % 15-55 Not Available [facility] ([facility]) [address] [place], [address], 02/25/2022 08:11:35 02/25/20 22 02/25/2022 FE+TI BC+FE R ferritin 30 NG/mL 30-400 Not Available [facility] ([facility]) [address] [place], [address], 02/25/2022 08:11:35 02/07/20 22 01/01/2022 diagn ostic colon oscop y (PROC ) No observ ation record ed. [id number] Cayden Gama MD [address], [place], [address], 01/09/2023 16:57:40 03/13/20 22 03/12/2022 CT, abdom en + pelvi s, w/ contr ast No observ ation record ed. [id number] [facility] [address], [place], [address], 01/09/2023 16:57:40 10/02/20 22 06/25/2022 CT, abdom en + pelvi s, w/ contr ast No observ ation record ed. [id number] [place] [address], [place], [address], 01/09/2023 16:57:40 12/20/19 23 12/20/2022 XR, chest , 2 view No observ ation record ed. [id number] [facility] [address], [place], [address], 01/09/2023 16:57:40 03/26/20 23 03/25/2023 XR, chest , 2 view No observ ation record ed. [email or web address] [facility] [address], [place], [address], 07/30/2023 17:44:23 Result Notes None recorded. Problems Name Problem SNOMED Code Status Onset Date Resolution Date Notes Provider Name and Address Organization Details Recorded Time Edema of lower extremity 308130962 Active 2022 Not Available [facility] 3 16:56:28 Benign essential hypertension 5916978 Active 2019 Not Available [facility] 3 16:56:28 Hammer toe 847939948 Active 2017 Not Available [facility] 3 16:56:28 Impacted cerumen 57022908 Active Not Available [facility] 3 16:56:28 Asthmatoid wheeze 11265624 Active Not Available [facility] 3 16:56:28 Asthma 054174403 Active Not Available [facility] 3 16:56:28 Cirrhosis of liver 09254280 Active 2022 Not Available [facility] 3 16:56:28 Plantar fasciitis 406926077 Active Not Available [facility] 3 16:56:28 Gastroesophag eal reflux disease 175699075 Active 2019 Not Available [facility] 3 16:56:28 Right inguinal hernia 220676968 Active 2021 Not Available [facility] 3 16:56:28 Dyspnea 530620964 Active 2022 Not Available [facility] 3 16:56:28 Wax in ear canal 362906822 Active Not Available [facility] 3 16:56:28 Thrombocytope annabelle disorder 154585732 Active 2022 Not Available [facility] 3 16:56:28 Ureteric stone 48400544 Active Not Available [facility] 3 16:56:29 Restless legs 36038624 Active 2021 Not Available [facility] 3 16:56:29 Dyslipidemia 767156650 Active Not Available [facility] 3 16:56:29 Hypertensive disorder 45577364 Active Not Available [facility] 3 16:56:29 Celiac disease 160621035 Active 2021 Not Available [facility] 3 16:56:29 Type 2 diabetes mellitus 29450863 Active Not Available [facility] 3 16:56:29 Coronary atheroscleros is 002810143 Active 2021 Not Available [facility] 3 16:56:29 Well controlled type 2 diabetes mellitus 474426053 Active 2021 Not Available [facility] 3 16:56:29 Upper respiratory infection 82139631 Active Not Available [facility] 3 16:56:29 Hyperlipidemi a 96106401 Active 2019 Not Available [facility] 3 16:56:29 Diarrhea 44939490 Active 2022 Not Available [facility] 3 16:56:29 Diabetes mellitus 70467903 Active Not Available [facility] 3 16:56:30 Reduced libido 4223634 Active Not Available [facility] 3 16:56:30 Iron deficiency anemia 40252097 Active 2021 Not Available [facility] 3 16:56:30 Cirrhosis - non-alcoholic 674520850 Active 2022 DEBRA Sparks [address], [address], [place], [address] , [facility] [employer] [facility] 3 16:53:20 Type 2 diabetes mellitus without complication 223995062 Active 2022 DEBRA Sparks [address], [facility] [address], [place], [address] , [facility] [employer] [facility] 3 16:53:44 Cough 75996101 Active 2022 DEBRA Sparks [address], [facility] [address], [place], [address] , [facility] [employer] [facility] 3 16:56:23 Notes:COVID-19 pos 11/25/21 e ye problems, balance problems, wear glasses/contacts, Problem Notes None recorded. Procedures Surgical History Date Name Laterality Status Provider Name and Address Organization Details Recorded Time 2 Colonoscopy completed Not Available [facility] 01/10/20 16:55:50 5 Colonoscopy completed Not Available [facility] 01/10/20 16:55:50 CABG completed Not Available [facility] 11/2022 16:55:50 Imaging Results Imaging Date Name Status [facility]Modified by [facility] Details LastModified Time 01/01/2022 diagnostic colonoscopy (PROC) completed [id number] Cayden Gama MD [address], [place], [address], 01/09/2023 16:57:40 12/20/2022 XR, chest, 2 view completed [id number] [facility] [address], [place], [address], 01/09/2023 16:57:40 03/12/2022 CT, abdomen + pelvis, w/ contrast completed [id number] [facility] [address], [place], [address], 01/09/2023 16:57:40 06/25/2022 CT, abdomen + pelvis, w/ contrast completed [id number] [facility] [address], [place], [address], 01/09/2023 16:57:40 03/25/2023 XR, chest, 2 view completed [email or web address] [facility] [address], [place], [address], 07/30/2023 17:44:23 Procedure Notes None recorded. Medical Equipment None Reported. Allergies Allergen ID Allergen Name Allergen Category Reaction Reaction Severity Criticality Documentation Date Start Date Code Code System Note Provider Name and Address Organization Details Recorded Time 51706 Product containin g penicilli n (product) medicatio n Not available Not available Not available 01/09/2023 37271 8001 SNOMED Not Available [facility] 16:57:39 Medications Name Sig Start Date Stop Date Status Note LastModified by Organization Details LastModified Time losartan 50 mg tablet Take 1 tablet by mouth every day 08/29 completed Not Available Not Available Not Available furosemide 40 mg tablet TAKE 1 TABLET BY MOUTH ONCE DAILY active Not Available Not Available No t Available atorvastati n 40 mg tablet Take 1 tablet by mouth at bedtime active Not Available Not Available No t Available metformin 500 mg tablet TAKE ONE TABLET BY MOUTH TWICE DAILY DIRECTED 10/26 completed Not Available Not Available Not Available albuterol sulfate 0.63 mg/3 mL solution for nebulizatio n active Not Available Not Available Not Available azithromyci n 250 mg tablet TAKE 2 TABLETS BY MOUTH ON DAY 1, AND THEN TAKE 1 TABLET BY MOUTH ONCE A DAY ON DAY 2 THROUGH DAY 5 active Not Available Not Available No t Available ibuprofen 800 mg tablet 10/26 completed Not Available Not Available Not Available benzonatate 200 mg capsule TAKE 1 CAPSULE BY MOUTH THREE TIMES DAILY NEEDED active Not Available Not Available No t Available clarithromy abilio 500 mg tablet TAKE 1 TABLET BY MOUTH EVERY 12 HOURS FOR 10 DAYS 11/23 completed Not Available Not Available Not Available hydrocodone 5 mg-acetamin ophen 325 mg tablet 2020 active Not Available Not Available Not Avai lable meloxicam 15 mg tablet Take 1 tablet every day by oral route. 10/26 completed Not Available Not Available Not Available ondansetron HCl 4 mg tablet 02/20 completed Not Available Not Available Not Available prednisone 20 mg tablet 10/26 completed Not Available Not Available Not Available Niaspan 500 mg tablet,exte nded release 10/26 completed Not Available Not Available Not Available Debrox 6.5 % ear drops Instill 3 drops twice a day by otic route. 08/29 completed Not Available Not Available Not Available amlodipine 5 mg tablet TAKE ONE TABLET BY MOUTH ONCE DAILY DIRECTED 01/18 completed Not Available Not Available Not Available ciprofloxac in 500 mg tablet 10/26 completed Not Available Not Available Not Available omeprazole 40 mg capsule,del ayed release Take 1 capsule by mouth every day 2022 active Not Available Not Available Not Avai lable SF 1.1 % dental gel 10/26 completed Not Available Not Available Not Available aspirin 81 mg tablet,mary yed release TAKE 1 TABLET BY MOUTH ONCE DAILY 02/01 completed Not Available Not Available Not Available tramadol 50 mg tablet TAKE 1 TABLET BY MOUTH EVERY 6 HOURS NEEDED FOR PAIN 02/20 completed Not Available Not Available Not Available spironolact one 25 mg tablet TAKE 1 TABLET BY MOUTH ONCE DAILY 11/26 completed Not Available Not Available Not Available potassium chloride 20 mEq oral packet 10/26 completed Not Available Not Available Not Available potassium chloride ER 20 mEq tablet,exte nded release(par t/cryst) TAKE 1 TABLET BY MOUTH ONCE DAILY 02/20 completed Not Available Not Available Not Available tamsulosin 0.4 mg capsule Take 1 capsule every day by oral route for 7 days. active Not Available Not Available No t Available colesevelam 625 mg tablet Take 3 tablets by mouth twice daily 2022 active Not Available Not Available Not Avai lable amlodipine 10 mg tablet Take 1 tablet by mouth every day 08/29 completed Not Available Not Available Not Available benzonatate 100 mg capsule TAKE 1 CAPSULE BY MOUTH THREE TIMES DAILY FOR 10 DAYS 11/23 completed Not Available Not Available Not Available ropinirole 2 mg tablet TAKE 1 TABLET BY MOUTH AT BEDTIME 02/01 completed Not Available Not Available Not Available oseltamivir 75 mg capsule TAKE 1 CAPSULE BY MOUTH TWICE DAILY FOR 5 DAYS 11/23 completed Not Available Not Available Not Available ferrous sulfate 325 mg (65 mg iron) tablet TAKE 1 TABLET BY MOUTH ONCE DAILY WITH BREAKFAST active Not Available Not Available No t Available prednisone 50 mg tablet TAKE 1 TABLET BY MOUTH ONCE DAILY FOR 5 DAYS active Not Available Not Available No t Available montelukast 10 mg tablet Take 1 tablet by mouth every day 2022 active Not Available Not Available Not Avai lable furosemide 20 mg tablet TAKE 1 TABLET BY MOUTH ONCE DAILY 12/30 completed Not Available Not Available Not Available Levaquin 500 mg tablet Take 1 tablet every 24 hours by oral route for 10 days. active Not Available Not Available No t Available Viagra 100 mg tablet 02/20 completed Not Available Not Available Not Available methylpredn isolone 4 mg tablets in a dose pack TAKE BY MOUTH DIRECTED ON INSIDE OF PACKAGE 11/23 completed Not Available Not Available Not Available albuterol sulfate HFA 90 mcg/actuati on aerosol inhaler INHALE 2 PUFFS BY MOUTH 4 TIMES DAILY NEEDED active Not Available Not Available No t Available Vitamin D2 1,250 mcg (50,000 unit) capsule 02/20 completed Not Available Not Available Not Available ondansetron 4 mg disintegrat ing tablet DISSOLVE 1 TABLET IN MOUTH EVERY 8 HOURS FOR 2 DAYS 11/23 completed Not Available Not Available Not Available doxycycline hyclate 100 mg tablet 02/20 completed Not Available Not Available Not Available spironolact one 50 mg tablet Take 1 tablet by mouth twice daily 2022 active Not Available Not Available Not Avai lable amoxicillin 875 mg-kathy m clavulanate 125 mg tablet 10/26 completed Not Available Not Available Not Available oxycodone 5 mg tablet active Not Available Not Available No t Available Cialis 5 mg tablet Take 1 tablet every day by oral route. 02/10 completed Not Available Not Available Not Available metoprolol tartrate 25 mg tablet Take one-half tablet by mouth twice daily active Not Available Not Available No t Available [employer] Chamber USE DIRECTED WITH VENTOLIN 07/31 completed Not Available Not Available Not Available metformin 01/06 completed Not Available Not Available Not Available Symbicort 160 mcg-4.5 mcg/actuati on HFA aerosol inhaler INHALE 2 PUFFS BY MOUTH TWICE DAILY active Not Available Not Available No t Available Zyrtec 10 mg capsule Take 1 capsule every day by oral route as directed for 15 days. 06/06 completed Not Available Not Available Not Available Axiron 30 mg/actuatio n (1.5 mL) transderm solution in metered pump Apply 1 pump every day by topical route. 02/10 completed Not Available Not Available Not Available Jentadueto 2.5 mg-500 mg tablet 02/20 completed Not Available Not Available Not Available Jentadueto 2.5 mg-1,000 mg tablet Take 1 tablet by mouth twice daily 08/29 completed Not Available Not Available Not Available Zorvolex 35 mg capsule Take 1 capsule 3 times a day by oral route. 10/26 completed Not Available Not Available Not Available Farxiga 5 mg tablet Take 1 tablet by mouth every day active Not Available Not Available No t Available Jardiance 10 mg tablet TAKE 1 TABLET BY MOUTH ONCE DAILY 11/14 completed Not Available Not Available Not Available Trulicity 0.75 mg/0.5 mL subcutaneou s pen injector Inject 0.75 mg subcutane ously once a week active Not Available Not Available No t Available aspirin 325 mg capsule Take by oral route. 2022 active Not Available Not Available Not Avai lable Vitals Date Recorded Body mass index (BMI) Body height Oxygen saturation Oxygen saturation in Arterial blood by Pulse oximetry Heart rate Respiratory rate Body temperature Body weight Systolic blood pressure Diastolic blood pressure Provider Name and Address Organization Details Last Updated DateTime 2 26.8 kg/m2 177.8 cm 98 % 98 % 67 /min 16 /min 96.4 [degF] 63171.7 7 g 150 mm[Hg] 72 mm[Hg] Not Available [employer] 3 16:56:10 Date Recorded Body mass index (BMI) Body height Oxygen saturation Oxygen saturation in Arterial blood by Pulse oximetry Heart rate Respiratory rate Body temperature Body weight Systolic blood pressure Diastolic blood pressure Provider Name and Address Organization Details Last Updated DateTime 3 25.8 kg/m2 177.8 cm 98 % 98 % 59 /min 16 /min 98 [degF] 46569.6 3 g 138 mm[Hg] 78 mm[Hg] Not Available [facility] 3 16:56:10 Date Recorded Body mass index (BMI) Body height Oxygen saturation Oxygen saturation in Arterial blood by Pulse oximetry Heart rate Body temperature Body weight Systolic blood pressure Diastolic blood pressure Provider Name and Address Organization Details Last Updated DateTime 3 28.1 kg/m2 177.8 cm 97 % 97 % 63 /min 98.1 [degF] 90994.1 g 128 mm[Hg] 62 mm[Hg] Not Available [facility] 3 16:56:11 Date Recorded Body height Body temperature Body mass index (BMI) Body weight Respiratory rate Oxygen saturation Oxygen saturation in Arterial blood by Pulse oximetry Heart rate Systolic blood pressure Diastolic blood pressure Provider Name and Address Organization Details Last Updated DateTime 3 177.8 cm 97.7 [degF] 24 kg/m2 11234.9 3 g 16 /min 98 % 98 % 83 /min 110 mm[Hg] 68 mm[Hg] KEN Polk [facility] [employer] 3 16:30:51 Date Recorded Body height Body mass index (BMI) Body weight Body temperature Heart rate Oxygen saturation Oxygen saturation in Arterial blood by Pulse oximetry Systolic blood pressure Diastolic blood pressure Provider Name and Address Organization Details Last Updated DateTime 3 177.8 cm 23.2 kg/m2 83051.9 6 g 97.2 [degF] 69 /min 97 % 97 % 118 mm[Hg] 58 mm[Hg] Katie Whitney RN [facility] [employer] [facility] 3 16:22:56 Social History Question Answer Notes LastModified by Organizat ion Details LastModified Time Tobacco Smoking Status Never Smoker Not Available [facility] 01/09/2023 16:55:48 What Is Your Level Of Alcohol Consumption? Occasional [id number] Information not available 01/09/2023 What Is Your Level Of Caffeine Consumption? Moderate [id number].[id number] Information not available 01/09/2023 How Much Tobacco Do You Chew? None MIGRATION.[id number] 0967 Information not available 01/09/2023 In The 14 Days Before Symptom Onset, Have You Had Close Contact With A Laboratory-confir med COVID-19 While That Case Was Ill? No [id number] Information not available 01/09/2023 In The 14 Days Before Symptom Onset, Have You Had Close Contact With A Person Who Is Under Investigation For COVID-19 While That Person Was Ill? 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 REGULAR [id number].[id number] Information not available 01/09/2023 Which Illicit Or Recreational Drugs Have You Used? None MIGRATION.[id number] Information not available 01/09/2023 Do You Or Have You Ever Used E-cigarettes Or Vape? 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 No MIGRATION.[id number] 8469 Information not available 01/09/2023 Do You Use Insect Repellent Routinely? No [id number] 9352 Information not available 01/09/2023 What Is Your Relationship Status? Single MIGRATION.[id number] 2172 Information not available 01/09/2023 Do You Use Your Seat Belt Or Car Seat Routinely? Yes MIGRATION.067211 2746 Information not available 01/09/2023 Do You Have Smoke And Carbon Monoxide Detectors In Your Home? Yes MIGRATION.553929 2824 Information not available 01/09/2023 Do You Or Have You Ever Used Smokeless Tobacco? Never Used Smokeless Tobacco MIGRATION.647606 2712 Information not available 01/09/2023 How Much Tobacco Do You Smoke? No MIGRATION.692913 1241 Information not available 01/09/2023 Do You Use Any Illicit Or Recreational Drugs? No MIGRATION.790137 5823 Information not available 01/09/2023 Do You Use Sunscreen Routinely? Yes MIGRATION.153449 6187 Information not available 01/09/2023 Have You Recently Traveled Abroad? No MIGRATION.033261 1600 Information not available 01/09/2023 Do You Have Any Dietary Restrictions? No MIGRATION.011490 2900 Information not available 01/09/2023 Do You Or Have You Ever Used Any Other Forms Of Tobacco Or Nicotine? No MIGRATION.046017 8981 Information not available 01/09/2023 Sex: Unknown Functional Status Question Answer Note LastModified by Organizat ion Details LastModified Time What is your exercise level? Occasional [id number] Information not available 01/09/2023 Mental Status None recorded. Family History Relationship Description Onset Age of this Age Resolved Age Notes LastModified by Organization Details LastModified Time Brother Hypertensive disorder [id number] Not available 01/09/2023 16:55:51 Father Hypertensive disorder [id number] Not available 01/09/2023 16:55:51 Mother Hypertensive disorder [id number] Not available 01/09/2023 16:55:51 Notes:No family history of u rolithiasis. Medical History Condition Response EYE PROBLEMS Y DIABETES, TYPE Y ASTHMA Y Past Encounters Encounter ID Performer Location Encounter Start Date Encounter Closed Date Diagnosis/Indication Diagnosis SNOMED-CT Code Diagnosis ICD10 Code Diagnosis Note [id number] DEBRA Sparks [facility] [place] [address] [address], [address] [place] [address] 02/20/2021 00:00:00 03/10/2021 13:41:[id number] [facility] [place] [address] [address], [address] [place] [address] 4 08/29/2021 00:00:00 09/10/2021 14:46:[id number] [facility] [place] [address] [address], [address] [place] [address] 4 02/01/2022 00:00:00 02/04/2022 15:58:[id number] [facility] [place] [address] [address], [address] [place] [address] 4 03/06/2022 00:00:00 03/06/2022 22:47:[id number] [facility] [place] [address] [place] [address] 11/26/2022 00:00:00 12/11/2022 21:38:[id number] [facility] [place] [address] [place] [address] 12/20/2022 00:00:00 01/08/2023 21:08:[id number] [facility] [place] [address] [place] [address] 03/25/2023 16:21:46 03/25/2023 16:59:53 Asthma 489701024 J45.909 stable. Iron defic iency anemia 85692662 D50.9 due for iron studies Thrombocyt openic disorder 117971446 D69.6 CBC due. has seen heme Cirrhosis - non-alcoholic 134202394 K74.60 due for cmp and pt/ptt/inr Type 2 jennifer betes mellitus without complication 738609110 E11.9 stable. due for a1c. on meds Hyperlipidemia 05193920 E78.5 fasting lipids due Long-term drug therapy 267220554 Z79.899 TFTs due Cough 39436395 R05.9 send for updated CXR [id number] DEBRA Sparks [facility] [place] [address] [place] [address] 08/23/2023 16:12:51 08/23/2023 16:59:27 Iron deficiency anemia 33412132 D50.9 due for iron studies Thrombocyt openic disorder 097101398 D69.6 CBC due. has seen heme Cirrhosis - non-alcoholic 470885113 K74.60 following cmp. seeing specialist now. Type 2 jennifer betes mellitus without complication 288303724 E11.9 stable. due for a1c. on meds Hyperlipidemia 41520384 E78.5 fasting lipids due Asthma 150826423 J45.90 9 stable. Long-term drug therapy 662695787 Z79.899 TFTs due Adult heal th examination 946767701 Z00.01 well exam completed Health Concerns Section Related Observation LastModified by Organization Detai ls LastModified Time None Recorded Concern Status LastModified by Organization Details LastModified Time None Recorded Advance Directives Directive None Recorded Payers Encounter Date Sequence Insurance Name Policy Number Policy Flanagan Covered Member ID Flanagan Member ID Guarantor Name 03/25/2023 1 [facility] [id number] Kai Null [id number] Kai Null 08/23/2023 1 [facility] [id number] César Letner [id number] Kai Null Notes Date Note Type Note Provider Name and Address Organization Details Recorded Time 03/06/20 22 text/htm l Abdominal PainReported bypatient.Location:[facility] Quality:pain;sharp; knot that increases and decreases in size at times Severity:mild; pain level 1/10 Duration:constant; started: (2 weeks ago) Onset/Timing:worse Context:unknown Aggravating Factors:nothing makes it worse Alleviating Factors:nothing gives relief Associated Symptoms:no fever; no chills; no blood in the urine; no heartburn; no shortness of breath; no nausea; no vomiting; no diarrhea; no constipation; normal stool; no blood in stool; normal appetite Other:denies possible Pain Radiation:no radiation Not Available [facility] 03/06/2022 22:47:58 11/26/19 23 text/htm l DiabetesReported bypatient.Duration:chronic Control:usually well controlled; treated with diet and oral medications Compliance:compliant with medications; compliant with follow-up visits; compliant with diet;noncompliant with home glucose monitoring Self Care:not monitoring home glucose Context:checking feet regularly;not seeing eye doctor yearly; taking aspirin daily Associated Symptoms:no weight gain; no weight loss; no dizziness; no sweats; no headaches; no confusion; no increased appetite; no increased urination; no blurred vision; no numbness of feet; no calluses on feet; no fatigue; no blurred vision; no paresthesias;increased thirst Chronic Complications:hyperlipidemia: YesHyperlipidemiaReported bypatient.Duration:chronic Control:usually well controlled Current Therapy:currently taking: (atorvastatin 40mg) Compliance:compliant; compliant with diet; exercises Complications:no coronary artery disease; no peripheral artery disease; no cardiovascular disease Risk Factors:diabetesHypertensionRep orted bypatient.Duration:has noted for years Onset/Timing:better Alleviating Factors:medication Self Care:not under emotional stress Associated Symptoms:no shortness of breath; no fatigue; no palpitations; no decline in exercise capacity; no snoring Not Available [employer] 12/11/2022 21:38:42 12/20/19 23 text/htm l Generic HPI TemplateReported bypatient.Location:bilat legs Quality:swelling, weeping Severity:painful to walk Not Available [employer] 01/08/2023 21:08:03 03/25/20 23 text/htm l CoughReported bypatient.Quality:loose; non productive; no hemoptysis;productive green sputum Severity:worsening Duration:intermittent; symptoms lasting over 2 weeks Timing:worse; actual date: (3 weeks) Context:non-smoker;history of asthma;history of bronchitis Modifying Factors:inhaler Associated Symptoms:no orthopnea; no wheezing ; no post nasal drip; no edema; no chest pain; no paroxysmal nocturnal dyspnea; no daytime somnolence; no heartburn; no snoring; no fever; no chills; no vomiting; no agitation; no sleep attacks;dyspnea with exertion;wheezing exertionalDiabetesReported bypatient.Duration:chronic Control:unchanged since last visit; treated with diet and oral medications Compliance:compliant with medications; compliant with follow-up visits; compliant with diet; compliant with home glucose monitoring;has not had eye doctor visit in last year;has not had dietitian visit in last year;does not wear a medic alert bracelet or necklace;does not keep rapid-acting carbohydrate in car Self Care:not monitoring home glucose Context:normal range of home blood sugars (in the low 100s); seeing eye doctor regularly; checking feet regularly; taking aspirin daily Associated Symptoms:no weight gain; no weight loss; no dizziness; no sweats; no headaches; no confusion; no increased appetite; no increased urination; no blurred vision; no numbness of feet; no calluses on feet; no coronary artery disease; no kidney disease; no peripheral vascular disease; no diabetic retinopathy; no diabetic neuropathy;increased thirstHyperlipidemiaReported bypatient.Duration:chronic Control:usually well controlled Current Therapy:currently taking: (atorvastatin 40mg) Compliance:compliant; compliant with diet;does not exercise(but active) Complications:no coronary artery disease; no peripheral artery disease; no cardiovascular disease Risk Factors:diabetes;hypertensionHy pertensionReported bypatient.Duration:has noted for years Onset/Timing:better Alleviating Factors:medication Associated Symptoms:no shortness of breath; no fatigue; no palpitations; no decline in exercise capacity; no snoringReflux/GERDReported bypatient.Severity:same Duration:present 5 or more years Onset/Timing:gone now Context:non-smoker; no drug/alcohol abuse; no drug alcohol withdrawal; not related to food/drink Alleviating Factors:medication Associated Symptoms:no frequent coughing; no feeling of fullness/mass in throat; no hoarseness; no food getting stuck; no belching/burping; no vomiting; not vomiting blood; no regurgitation; no shortness of breath; no chest pain; no heartburn; no difficulty swallowing; no pain when swallowing; no bad taste; no decreased appetite; no weight loss; no black/tarry stools; no fatigue; no throat pain DEBRA Sparks [address], [address], [facility] [employer] 04/10/2023 23:33:43 08/23/20 23 text/htm l CoughReported bypatient.Quality:loose; non productive; no hemoptysis;productive green sputum Severity:worsening Duration:intermittent; symptoms lasting over 2 weeks Timing:worse; actual date: (3 weeks) Context:non-smoker;history of asthma;history of bronchitis Modifying Factors:inhaler Associated Symptoms:no orthopnea; no wheezing ; no post nasal drip; no edema; no chest pain; no paroxysmal nocturnal dyspnea; no daytime somnolence; no heartburn; no snoring; no fever; no chills; no vomiting; no agitation; no sleep attacks;dyspnea with exertion;wheezing exertionalDiabetesReported bypatient.Duration:chronic Control:unchanged since last visit; treated with diet and oral medications Compliance:compliant with medications; compliant with follow-up visits; compliant with diet; compliant with home glucose monitoring;has not had eye doctor visit in last year;has not had dietitian visit in last year;does not wear a medic alert bracelet or necklace;does not keep rapid-acting carbohydrate in car Self Care:not monitoring home glucose Context:normal range of home blood sugars (in the low 100s); seeing eye doctor regularly; checking feet regularly; taking aspirin daily Associated Symptoms:no weight gain; no weight loss; no dizziness; no sweats; no headaches; no confusion; no increased appetite; no increased urination; no blurred vision; no numbness of feet; no calluses on feet; no coronary artery disease; no kidney disease; no peripheral vascular disease; no diabetic retinopathy; no diabetic neuropathy;increased thirstHyperlipidemiaReported bypatient.Duration:chronic Control:usually well controlled Current Therapy:currently taking: (atorvastatin 40mg) Compliance:compliant; compliant with diet;does not exercise(but active) Complications:no coronary artery disease; no peripheral artery disease; no cardiovascular disease Risk Factors:diabetes;hypertensionHy pertensionReported bypatient.Duration:has noted for years Onset/Timing:better Alleviating Factors:medication Associated Symptoms:no shortness of breath; no fatigue; no palpitations; no decline in exercise capacity; no snoringReflux/GERDReported bypatient.Severity:same Duration:present 5 or more years Onset/Timing:gone now Context:non-smoker; no drug/alcohol abuse; no drug alcohol withdrawal; not related to food/drink Alleviating Factors:medication Associated Symptoms:no frequent coughing; no feeling of fullness/mass in throat; no hoarseness; no food getting stuck; no belching/burping; no vomiting; not vomiting blood; no regurgitation; no shortness of breath; no chest pain; no heartburn; no difficulty swallowing; no pain when swallowing; no bad taste; no decreased appetite; no weight loss; no black/tarry stools; no fatigue; no throat pain wellness DEBRA Sparks [address] [facility], [place], [address], [facility] 09/11/2023 00:35:04
--- OUTSIDE RECORDS SUMMARY | 2025-03-17 13:42 | XMS_ITS | CONTINUITY OF CARE DOCUMENT ---
Author Name carol annsmithakristinete Address Unknown Organization [facility] Address [address] [facility] [address] [place] [address] Phone [phone] Care Team Providers Care Erecting Crane Operator Name Role Phone Robbie Ash MD Unavailable ROSANGELA WHYTE Unavailable [phone] ROSANGELA WHYTE Unavailable INSURANCE PROVIDERS Payer name Policy type / Coverage type [place] red republican ID [facility] [id number] Other [id number]
--- OUTSIDE RECORDS SUMMARY | 2025-03-17 13:42 | XMS_ITS | Clinical Summary ---
Author Organization [facility] Address [address] [place] [address] Care Team Providers Care Coffee Supervisor Name Role Phone Unavailable Primary Care Provider Unavailabl e Social History Tobacco Use Types Packs/Day Years Used Date Smoking Tobacco: Never Assessed Sex and Gender Information Value Date Recorded Sex Assigned at Not on file Legal Sex Male 7:11 PM CDT Gender Identity Not on file Sexual Orientation Not on file Plan of Treatment Health Maintenance Due Date Last Done Comments Colorectal Cancer Screening Colonoscopy (10 Years) 1960 Annual Physical 1963 Hepatitis C 1978 DTaP, Tdap and Td Vaccines ( 1 - Tdap) 1979 Pneumococcal Vaccine: 50+ Ye ars (1 of 1 - PCV) 2010 Zoster Vaccines (1 of 2) 2010 COVID-19 Vaccine ( - 2023-2 5 season) 2024 RSV Immunization or 60+ Years (1 - 1-dose 75+ series) 2035 Meningococcal B Vaccine Aged Out No l onger eligible based on patient's age to complete this topic Meningococcal Vaccine Aged Out No carli kiet eligible based on patient's age to complete this topic RSV Immunizations Under 20 Months Aged Out No longer eligible based on patient's age to complete this topic
--- OUTSIDE RECORDS SUMMARY | 2025-03-17 13:43 | XMS_ITS | Continuity of Care Document ---
Author Organization [facility] Address [address] [facility] [address] [place] [address] Phone Care Team Providers Care Inorganic Chemist Name Role Phone Calin Molina MD Unavailable Unavailable Allergies, Adverse Reactions, Alerts Substance Reaction Status Criticality Penicillins Active No Information Medications Medication Instructions Dosage Effective Dates (start - stop) Status Comments losartan 50 mg tablet take 1 tablet by o ral route every day 50 MG - Active amlodipine 5 mg tablet take 1 tablet by oral route every day 5 MG - Active omeprazole 20 mg capsule,delayed release take 1 capsule by oral route every day 30 minutes to 1 hour before a meal 20 MG - Active Trulicity 1.5 mg/0.5 mL subcutaneous pen injector inject 0.5 milliliter by subcutaneous route every week in the abdomen, thigh, or upper arm rotating injection sites - Active Procedures Procedure Date OFFICE/OUTPATIENT VISIT [facility] Advance Directives Directive Yes / No Effective Date File Name No Information Encounters Encounter Description Practice Location Reason(s) For Visit Diagnoses Date Provider Providers Copied on Encounter OFFICE/OUTPA TIENT VISIT [facility], [address] [facility] [address], [place], [address], tel:[phone] [facility] Primary osteoarthritis of left wristBody mass index (BMI) 31.0-31.9, adult Nov 0201 [address] [place], [place], [id number] . tel: [phone] Family History Family Member Type Diagnosis Age At Onset Brother Problem (finding) Alive and well Payers Payer name Insurance type Covered alliance party ID Authoriza tion(s) No Information Social History Type Description Quantity Date Captured Comments Alcohol Use Details Unknown Caffeine Use Details Unknown Tobacco Use Status Current non-smoker 18 Smoking Status Never smoker Non-Smoking Tobacco Use Details : No Details Available : No Details Available Sex Male Vital Signs Date / Time: Height Weight BMI Pulse Rate Blood Pressure Temperature Respiratory Rate Body Surface Area Head Circumference Head Circ. Percentile Wt./Dmeario. Percentile BMI percentile Pulse Ox Inhaled Ox 4:59 PM 68.00 in 92.986 kg (205.00 lbs) 31.1 7 kg/m eter (2) 127/84 mm[Hg] Chief Complaint And Reason For Visit No Information Reason For Referral Reason For Referral No Information Plan Of Treatment Date Type Action Status Referral Ordered: RADEX FNGR MINIMUM 2 VIEWS LT ordered Referral Ordered: RADEX WRST COMPL MINIMUM 3 VIEWS LT ordered History Of Present Illness Encounter Date Complaint History Of Prese nt Illness No Information Functional Status Date Functional Assessmen t No Information Instructions Date Instruction Additional Infor mation Giving encouragement to exercise Related to Body mass index (BMI) 31.0-31.9, adult Assessments Type Assessment Date assessment Primary osteoarthritis of left w rist assessment Body mass index (BMI) 31.0-31.9, adult Patient Care Teams Name Effective Dates (start - stop) Status Members No Information
--- OUTSIDE RECORDS SUMMARY | 2025-03-17 13:43 | XMS_ITS | Clinical Summary ---
Author Organization [facility] Address [address] [place] [id number] Care Team Providers Care Word Processor Operator Name Role Phone [facility] ovider Hakan Covarrubias DO Unavailable [phone] Allergies Active Allergy Reactions Criticality Noted Date Comments Penicillins Unknown 12/26/2020 Childhood allergy Medications dulaglutide (TRULICITY) 0.75 mg/0.5 mL pen injectorIndicati ons:type 2 diabetes mellitus Inject 0.5 mL (0.75 mg total) as directed once a week Take on Saturday 1 Active sodium chloride 0.9 % solution for nebulization with albuterol 5 mg/mL solution for nebulization 0.6 mg/mL Take 0.5 mg/kg/hr by nebulization daily as needed (wheezing) Active omeprazole (PriLOSEC) 40 mg capsuleIndicatio ns:gerd Take 1 capsule (40 mg total) by mouth every morning Active colesevelam (WELCHOL) 625 mg tabletIndication s:Type 2 Diabetes Mellitus Treatment Adjunct,hyperlip idemia Take 3 tablets (1,875 mg total) by mouth 2 (two) times a day with meals Take 3 tablets twice daily Active albuterol HFA (PROVENTIL HFA,VENTOLIN HFA,PROAIR HFA) 90 mcg/actuation inhaler Inhale 2 puffs every 6 (six) hours as needed for wheezing or shortness of breath As needed Active dapagliflozin (FARXIGA) 5 mg tabletIndication s:type 2 diabetes mellitus Take 1 tablet (5 mg total) by mouth every morning Active aspirin 325 mg tablet Take 1 tablet (325 mg total) by mouth daily 30 tablet 11 1 Active Additional Information Patient taking differently:325 mg oralEvery morning, Indications: prevention of thrombosis, Informant: Self, Reported on 05/07/2023 atorvastatin (LIPITOR) 40 mg tablet Take 1 tablet (40 mg total) by mouth nightly 30 tablet 11 1 Active Additional Information Patient taking differently:40 mg oral Nightly,Indications: hyperlipidemia, Informant: Self, Reported on 05/07/2023 metoprolol tartrate (LOPRESSOR) 25 mg immediate release tablet Take 0.5 tablets (12.5 mg total) by mouth 2 (two) times a day 30 tablet 2 1 Active Additional Information Patient taking differently:12.5 mg oral 2 times daily,Indications: hypertension, Informant: Self, Reported on 05/07/2023 furosemide (LASIX) 40 mg tabletIndication s:Edema,hyperten alvaro Take 1 tablet (40 mg total) by mouth every morning 3 Active spironolactone (ALDACTONE) 50 mg tabletIndication s:htn Take 1 tablet (50 mg total) by mouth 2 (two) times a day 3 Active oxyCODONE (ROXICODONE) 5 mg immediate release tabletIndication s:Pain Take 1 tablet (5 mg total) by mouth every 4 (four) hours as needed for pain 15 tablet 3 Active Additional Information Patient not taking.Reported on 01/14/2024 Active Problems Problem Noted Date Diagnosed Date Unilateral inguinal hernia without obstruction o r gangrene 05/07/2023 Thrombocytopenia, unspecified 01/16/2022 Hx of CABG 02/09/2021 Coronary 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 01/10/2021 Overview (01/10/2021): Added automatically from request for surgery [id number] Immunizations Immunization Administration Dates Next Due Influenza, Unspecified 09/25/2021 Surgical History Surgery Date Site/Laterality Comments HERNIA REPAIR 11/11/1968 - 11/10/1969 rupture EYE SURGERY 11/11/1989 - 11/10/1990 Right CORONARY ARTERY BYPASS GRAFT 01/12/2021 CABGx4 COLONOSCOPY 11/11/2021 - 11/10/2022 Medical History Medical History Date Comments Hypertension Overweight Hyperlipidemia DM (diabetes mellitus) (HCC) Asthma Kidney stone Coronary artery disease Gastroesophageal reflux disease Prostate disease Family History Medical History Relation Name Comments Heart disease Father Heart attack Mother Anesthesia problems Neg Hx Relation Name Status Comments Brother 1 Alive Brother 2 Alive Brother 3 Alive Father (Age 90) Mother (Age 81) Social History Tobacco Use Types Packs/Day Years Used Date Smoking Tobacco: Never Smokeless Tobacco: Never Tobacco Cessation:Counseling Given: Not Answered Alcohol Use Standard Drinks/Week Comments Not Currently 0 (1 standard drink = 0.6 oz pur e alcohol) AUDIT-C Answer Date Recorded Q1: How often do you have a drink containing alc ohol? Never 01/07/2022 Average Number of Drinks Not on file 022 Frequency of Binge Drinking Not on file 12/13 Personal Safety Answer Date Recorded Have you ever been in or are you currently in a harmful physical or emotional relationship or is someone making you feel afraid or unsafe? 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 Not on file Not on file Obstetrics History Last Filed Vital Signs Vital Sign Reading Time Taken Comments Blood Pressure 110/52 01/14/2024 3:29 PM [employer] Pulse 62 01/14/2024 3:29 PM [employer] Temperature 36.8 C (98.2 F) 10/09/2023 2:49 PM [employer] Respiratory Rate 16 10/09/2023 2:49 PM [employer] Oxygen Saturation 97% 01/14/2024 3:29 PM [employer] Inhaled Oxygen Concentration - - Weight 74.4 kg (164 lb) 01/14/2024 3:29 PM [employer] Height 177.8 cm (5' 10 ) 01/14/2024 3:29 PM [employer] Body Mass Index 23.53 01/14/2024 3:29 PM [employer] Plan of Treatment Health Maintenance Due Date Last Done Comments Colon Cancer Screening-Colonoscopy 1960 Depression Screening 1960 Prostate Cancer Screening-PSA 1960 DTaP/Tdap/Td Vaccine (1 - Tdap) 1971 Hepatitis B Screening 1978 Regular Well Visit/Exam 18-64 1978 Pneumococcal vaccine <65 (1 of 2 - PCV) 1979 Zoster Vaccine (1 of 2) 1979 Influenza Vaccine (Season Ended) 2025 09/25/20 Hepatitis C Screening Completed 12/28/2021 Medical Devices Implanted Type Area Blending Supervisor Device Identifier Shelf Expiration Date Model / Serial / Lot [employer] Bard 6x3in Large Pore Knit Monofilament Smooth [place] [id number] - [id number] Implanted:Qty: 1 on 05/24/2023 by Gerardo West MD at [facility] Right: Inguinal [employer] [id number] 09/07/2027 [id number] / / [id number] Procedures Procedure Name Priority Date/Time Associated Diagnosis Comments HEPATITIS C ANTIBODY Routine 12/28/2021 9:49 AM [employer] Encounter for hepatitis C screening test for low risk patient from Last 3 Months or Most Recently Relevant to Health Maintenance Results * Hepatitis C antibody (12/28/2021 9:49 AM [employer]) Hep C Ab Nonreactive Nonreactive LOREN TAM Comment: Interpretive Data Nonreactive: Antibodies to HCV not detected. Does NOT exclude the possibility of recent exposure to HCV. Equivocal: Equivocal for HCV antibodies. Supplemental molecular testing will be automatically performed to determine infection status in accordance with current CDC screening recommendations. Reactive: Positive for HCV antibodies. This may represent current or past HCV infection. Supplemental molecular testing will be automatically performed to determine current infection status in accordance with current CDC screening recommendations. Interpretive data was last revised on 2020. Blood 12/28/2021 9:49 AM [employer] 12/28/2021 12:36 PM [employer] us Hakan Covarrubias DO LAB MICROBIOLOGY - GENERAL O RDERABLES Final Result [facility] [id number] [facility] [place] [address] from Last 3 Months or Most Recently Relevant to Health Maintenance Insurance CHOICE PLUS CHOICE PLUS Member Subscriber Plan / Payer (Ef fective 2020-Present) Name:Kai Null Relation to Subscriber:Self Name:Kai Null Payer ID:[id number] (NA) Type:[facility] HMO/PPO Address: [place] [id number] CHOICE PLUS [facility] CHOICE PLUS Advance Directives For more information, please contact: [phone] * Full Code (Latest Code Status on File) Date Activated Date Inactivated Comments 01/12/2021 3:26 PM 01/17/2021 11:21 PM Care Teams Word Processor Operator Relationship Specialty Start Date End Date Rhoda Pacheco PA PCP - General Physician Utility Inspector 12/02/20 Hakan Covarrubias DO [address] [place] [address] MEDICAL ONCOLOGY, [address] [address] Medical Oncologist/Contact Manager Hematology and Oncology 01/08/22
--- OUTSIDE RECORDS SUMMARY | 2025-03-17 13:43 | XMS_ITS | Data Portability ---
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 Plan of Treatment Reminders Order Date Submit Date Provider Last Modified By Organization Details Last Modified Time Details Appointments ANY 15 2024 03:15P M DEBRA Sparks Not available Not available Not available Lab CMP, serum or plasma 2024 025 LOU [facility], [address], [place], [address], 01/04/2025 22:40:09 TSH + free T4, serum 2024 025 LOU [facility], [address], [place], [address], 01/04/2025 22:40:09 lipid panel, serum 2024 025 LOU [facility], [address], [place], [address], 01/04/2025 22:40:09 testoster one, total, serum 2024 025 [email or web address] [facility], [address], [place], [address], 01/08/2025 10:41:56 HbA1c (hemoglob in A1c), blood 2024 025 LOU [facility], [address], [place], [address], 01/04/2025 22:40:10 CBC w/ auto diff 2024 025 LOU [facility], [address], [place], [address], 01/04/2025 22:40:09 iron + total iron-bind ing capacity (TIBC), serum 2024 025 LOU [facility], [address], [place], [address], 01/04/2025 22:40:10 ferritin, serum or plasma 2024 025 [email or web address] [id number] [facility], [address], [place], [address], 01/08/2025 10:41:56 PSA, total, serum or plasma 2023 024 LOU [facility], [address], [place], [address], 06/02/2024 12:37:29 CMP, serum or plasma 2023 024 L[facility], [address], [place], [address], 06/02/2024 12:37:26 TSH + free T4, serum 2023 024 [facility], [address], [place], [address], 06/02/2024 12:37:25 HbA1c (hemoglob in A1c), blood 2023 024 L[facility], [address], [place], [address], 06/02/2024 12:37:28 microalbu min, urine 2023 024 LOU [facility], [address], [place], [address], 06/02/2024 12:37:25 lipid panel, serum 2023 024 [facility], [address], [place], [address], 06/02/2024 12:37:26 CBC w/ auto diff 2023 024 [facility], [address], [place], [address], 06/02/2024 12:37:29 iron + total iron-bind ing capacity (TIBC), serum 2023 024 [facility], [address], [place], [address], 06/02/2024 12:37:27 ferritin, serum or plasma 2023 024 [facility], [address], [place], [address], 06/02/2024 12:37:28 Referral pulmonolo gist referral 2024 025 [facility] - Pulmonology, Pulmonary & Sleep Medicine, [address], [address], [place], [address], 02/11/2025 10:12:03 Procedures None recorded. Surgeries None recorded. Imaging None recorded. Medication Orders Zithromax Z-Edgar 250 mg tablet 2023 024 [email or web address], [address] [place], [address], 11/27/2024 16:34:13 prednison e 20 mg tablet 2023 024 [facility], [address] [place], [address], 07/27/2024 19:12:50 Patient TargetsNo targets recorded. Patient InstructionsNo instructions recorded. Reason for Referral Armhole Baster Hand Referral for C T of chest abnormal Referring Physician: Rhoda Pacheco, Internal Medicine, Encounter Date: 11/27/2024 Results Created Date Observation Date Name Description Value Unit Range Abnormal Flag Note LastModifiedBy Organization Detail LastModifiedTime 06/01/20 24 06/02/2024 ALBUM IN, RANDO M URINE albumin, urine <3.0 ug/mL notest ab. Not Available [facility] ([facility]) [address] [place], [address], 06/02/2024 12:37:25 06/01/20 24 06/02/2024 TSH+F REE T4 TSH 1.350 uIU/m L 0.450- 4.500 Not Available [facility] ([facility]) [address] [place], [address], 06/02/2024 12:37:25 06/01/20 24 06/02/2024 TSH+F REE T4 T4,free(dire ct) 1.28 NG/dL 0.82-1 .77 Not Available [facility] ([facility]) [address] [place], [address], 06/02/2024 12:37:25 06/01/20 24 06/02/2024 LIPID PANEL cholesterol, total 94 mg/dL 100-19 9 below low normal Not Available [facility] ([facility]) [address] [place], [address], 06/02/2024 12:37:26 06/01/20 24 06/02/2024 LIPID PANEL triglyceride s 42 mg/dL 0-149 Not Available [facility] ([facility]) [address] [place], [address], 06/02/2024 12:37:26 06/01/20 24 06/02/2024 LIPID PANEL HDL cholesterol 65 mg/dL >39 Not Available [facility]) [address] [facility], [place], [address], 06/02/2024 12:37:26 06/01/20 24 06/02/2024 LIPID PANEL VLDL cholesterol oscar 12 mg/dL 5-40 Not Available [facility] ([facility]) [address] [facility] [place], [address], 06/02/2024 12:37:26 06/01/20 24 06/02/2024 LIPID PANEL LDL chol calc ([facility]) 17 mg/dL 0-99 Not Available [facility] ([facility]) [address] [facility], [place], [address], 06/02/2024 12:37:26 06/01/20 24 06/02/2024 COMP. METAB OLIC PANEL (14) glucose 107 mg/dL 70-99 above high normal Not Available [facility] ([facility]) [address] [facility] [place], [address], 06/02/2024 12:37:26 06/01/20 24 06/02/2024 COMP. METAB OLIC PANEL (14) BUN 7 mg/dL 8-27 below low normal Not Available [facility] ([facility]) [address] [place], [address], 06/02/2024 12:37:26 06/01/20 24 06/02/2024 COMP. METAB OLIC PANEL (14) creatinine 0.73 mg/dL 0.76-1 .27 below low normal Not Available [facility] ([facility]) [address] [facility] [place], [address], 06/02/2024 12:37:26 06/01/20 24 06/02/2024 COMP. METAB OLIC PANEL (14) eGFR 102 mL/mi n/1.7 3 >59 Not Available [facility] ([facility]) [address] [facility] [place], [address], 06/02/2024 12:37:26 06/01/20 24 06/02/2024 COMP. METAB OLIC PANEL (14) BUN/creatini ne ratio 10 10-24 Not Available [facility] ([facility]) [address] [facility] [place], [address], 06/02/2024 12:37:26 06/01/20 24 06/02/2024 COMP. METAB OLIC PANEL (14) sodium 137 mmol/ L 134-14 4 Not Available [facility] ([facility]) [address] [facility], [place], [address], 06/02/2024 12:37:26 06/01/20 24 06/02/2024 COMP. METAB OLIC PANEL (14) potassium 5.0 mmol/ L 3.5-5. 2 Not Available [facility] ([facility]) [address] [facility], [place], [address], 06/02/2024 12:37:26 06/01/20 24 06/02/2024 COMP. METAB OLIC PANEL (14) chloride 107 mmol/ L 96-106 above high normal Not Available [facility] ([facility]) [address] [place], [address], 06/02/2024 12:37:26 06/01/20 24 06/02/2024 COMP. METAB OLIC PANEL (14) carbon dioxide, total 20 mmol/ L 20-29 Not Available [facility] ([facility]) [address] [place], [address], 06/02/2024 12:37:26 06/01/20 24 06/02/2024 COMP. METAB OLIC PANEL (14) calcium 8.4 mg/dL 8.6-10 .2 below low normal Not Available [facility] ([facility]) [address] [place], [address], 06/02/2024 12:37:26 06/01/20 24 06/02/2024 COMP. METAB OLIC PANEL (14) protein, total 6.2 g/dL 6.0-8. 5 Not Available [facility] ([facility]) [address] [facility] [place], [address], 06/02/2024 12:37:26 06/01/20 24 06/02/2024 COMP. METAB OLIC PANEL (14) albumin 3.6 g/dL 3.9-4. 9 below low normal Not Available [facility] ([facility]) [address] [facility] [place], [address], 06/02/2024 12:37:26 06/01/20 24 06/02/2024 COMP. METAB OLIC PANEL (14) globulin, total 2.6 g/dL 1.5-4. 5 Not Available [facility] ([facility]) [address] [facility] [place], [address], 06/02/2024 12:37:26 06/01/20 24 06/02/2024 COMP. METAB OLIC PANEL (14) bilirubin, total 1.9 mg/dL 0.0-1. 2 above high normal Not Available [facility] ([facility]) [address] [place], [address], 06/02/2024 12:37:26 06/01/20 24 06/02/2024 COMP. METAB OLIC PANEL (14) alkaline phosphatase 329 IU/L 44-121 above high normal Not Available [facility] ([facility]) [address] [place], [address], 06/02/2024 12:37:26 06/01/20 24 06/02/2024 COMP. METAB OLIC PANEL (14) AST (SGOT) 41 IU/L 0-40 above high normal Not Available [facility] ([facility]) [address] [place], [address], 06/02/2024 12:37:26 06/01/20 24 06/02/2024 COMP. METAB OLIC PANEL (14) ALT (SGPT) 40 IU/L 0-44 Not Available [facility] ([facility]) [address] [place], [address], 06/02/2024 12:37:26 06/01/20 24 06/02/2024 IRON AND TIBC iron bind.cap.(TI BC) 252 ug/dL 250-45 0 Not Available [facility] ([facility]) [address] [place], [address], 06/02/2024 12:37:27 06/01/20 24 06/02/2024 IRON AND TIBC UIBC 206 ug/dL 111-34 3 Not Available [facility] ([facility]) [address] [place], [address], 06/02/2024 12:37:27 06/01/20 24 06/02/2024 IRON AND TIBC iron 46 ug/dL 38-169 Not Available [facility] ([facility]) [address] [place], [address], 06/02/2024 12:37:27 06/01/20 24 06/02/2024 IRON AND TIBC iron saturation 18 % 15-55 Not Available [facility] ([facility]) [address] [place], [address], 06/02/2024 12:37:27 06/01/20 24 06/02/2024 HEMOG LOBIN A1C hemoglobin A1C 5.7 % 4.8-5. 6 above high normal Predi abete s: 5.7 - 6.4 Diabe nelda: >6.4 Glyce davian contr ol for adult s with diabe nelda: <7.0 Not Available [facility] ([facility]) [address] [place], [address], 06/02/2024 12:37:27 06/01/20 24 06/02/2024 REMY TIN ferritin 33 NG/mL 30-400 Not Available [facility] ([facility]) [address] [facility], [place], [address], 06/02/2024 12:37:28 06/01/20 24 06/02/2024 CBC WITH DIFFE RENTI AL/PL ATELE T WBC 7.8 x10e3 /uL 3.4-10 .8 Not Available [facility] ([facility]) [address] [facility], [place], [address], 06/02/2024 12:37:29 06/01/20 24 06/02/2024 CBC WITH DIFFE RENTI AL/PL ATELE T RBC 4.12 x10e6 /uL 4.14-5 .80 below low normal Not Available [facility] ([facility]) [address] [facility], [place], [address], 06/02/2024 12:37:29 06/01/20 24 06/02/2024 CBC WITH DIFFE RENTI AL/PL ATELE T hemoglobin 12.5 g/dL 13.0-1 7.7 below low normal Not Available [facility] ([facility]) [address] [facility], [place], [address], 06/02/2024 12:37:29 06/01/20 24 06/02/2024 CBC WITH DIFFE RENTI AL/PL ATELE T hematocrit 38.6 % 37.5-5 1.0 Not Available [facility] ([facility]) [address] [facility], [place], [address], 06/02/2024 12:37:29 06/01/20 24 06/02/2024 CBC WITH DIFFE RENTI AL/PL ATELE T MCV 94 fL 79-97 Not Available [facility] ([facility]) [address] [place], [address], 06/02/2024 12:37:29 06/01/20 24 06/02/2024 CBC WITH DIFFE RENTI AL/PL ATELE T MCH 30.3 pg 26.6-3 3.0 Not Available [facility] ([facility]) [address] [facility], [place], [address], 06/02/2024 12:37:29 06/01/20 24 06/02/2024 CBC WITH DIFFE RENTI AL/PL ATELE T MCHC 32.4 g/dL 31.5-3 5.7 Not Available [facility] ([facility]) [address] [facility], [place], [address], 06/02/2024 12:37:29 06/01/20 24 06/02/2024 CBC WITH DIFFE RENTI AL/PL ATELE T RDW 15.3 % 11.6-1 5.4 Not Available [facility] ([facility]) [address] [facility], [place], [address], 06/02/2024 12:37:29 06/01/20 24 06/02/2024 CBC WITH DIFFE RENTI AL/PL ATELE T platelets 67 x10e3 /uL 150-45 0 alert low Plate let count verif ied by lisa marcial of perip heral blood smear . Not Available [facility] ([facility]) [address] [facility], [place], [address], 06/02/2024 12:37:29 06/01/20 24 06/02/2024 CBC WITH DIFFE RENTI AL/PL ATELE T neutrophils 62 % notest ab. Not Available [facility] ([facility]) [address] [facility], [place], [address], 06/02/2024 12:37:29 06/01/20 24 06/02/2024 CBC WITH DIFFE RENTI AL/PL ATELE T lymphs 9 % notest ab. Not Available [facility] ([facility]) [address] [place], [address], 06/02/2024 12:37:29 06/01/20 24 06/02/2024 CBC WITH DIFFE RENTI AL/PL ATELE T monocytes 10 % notest ab. Not Available [facility] ([facility]) [address] [facility], [place], [address], 06/02/2024 12:37:29 06/01/20 24 06/02/2024 CBC WITH DIFFE RENTI AL/PL ATELE T eos 19 % notest ab. Not Available [facility] ([facility]) [address] [facility], [place], [address], 06/02/2024 12:37:29 06/01/20 24 06/02/2024 CBC WITH DIFFE RENTI AL/PL ATELE T basos 0 % notest ab. Not Available [facility] ([facility]) [address] [facility], [place], [address], 06/02/2024 12:37:29 06/01/20 24 06/02/2024 CBC WITH DIFFE RENTI AL/PL ATELE T neutrophils (absolute) 4.7 x10e3 /uL 1.4-7. 0 Not Available [facility] ([facility]) [address] [facility], [place], [address], 06/02/2024 12:37:29 06/01/20 24 06/02/2024 CBC WITH DIFFE RENTI AL/PL ATELE T lymphs (absolute) 0.7 x10e3 /uL 0.7-3. 1 Not Available [facility] ([facility]) [address] [facility], [place], [address], 06/02/2024 12:37:29 06/01/20 24 06/02/2024 CBC WITH DIFFE RENTI AL/PL ATELE T monocytes(ab solute) 0.8 x10e3 /uL 0.1-0. 9 Not Available [facility] ([facility]) [address] [facility], [place], [address], 06/02/2024 12:37:29 06/01/20 24 06/02/2024 CBC WITH DIFFE RENTI AL/PL ATELE T eos (absolute) 1.5 x10e3 /uL 0.0-0. 4 above high normal Not Available [facility] ([facility]) [address] [facility], [place], [address], 06/02/2024 12:37:29 06/01/20 24 06/02/2024 CBC WITH DIFFE RENTI AL/PL ATELE T baso (absolute) 0.0 x10e3 /uL 0.0-0. 2 Not Available [facility] ([facility]) [address] [facility], [place], [address], 06/02/2024 12:37:29 06/01/20 24 06/02/2024 CBC WITH DIFFE RENTI AL/PL ATELE T immature granulocytes 0 % notest ab. Not Available [facility] ([facility]) [address] [facility], [place], [address], 06/02/2024 12:37:29 06/01/20 24 06/02/2024 CBC WITH DIFFE RENTI AL/PL ATELE T immature grans (abs) 0.0 x10e3 /uL 0.0-0. 1 Not Available [facility] ([facility]) [address] [place], [address], 06/02/2024 12:37:29 06/01/20 24 06/02/2024 CBC WITH DIFFE RENTI AL/PL ATELE T hematology comments: NOTE: Verif ied by micro scopi c exami natio n. Not Available [facility] ([facility]) [address] [facility], [place], [address], 06/02/2024 12:37:29 06/01/20 24 06/02/2024 PROST ATE-S PECIF IC AG prostate specific Ag 0.3 NG/mL 0.0-4. 0 Heriberto ECLIA metho dolog y. Accor ding to the Ameri can [employer] g[employer] iatio n, Serum PSA shoul d decre ase and remai n at undet ectab le level s after radic al prost atect annel. The AUA defin es bioch emica l recur rence as an initi al PSA value 0.2 ng/mL or great er follo wed by a subse quent confi rmato ry PSA value 0.2 ng/mL or great er. Value s obtai yordan with diffe rent assay metho ds or kits canno t be used inter bob eably . Resul ts canno t be inter prete d as absol rampart evide nce of the prese nce or absen ce of indira hussein se. Not Available [facility] ([facility]) [address] [facility], [place], [address], 06/02/2024 12:37:29 12/28/19 25 12/29/2024 LIPID PANEL W/ CHOL/ HDL RATIO cholesterol, total 117 mg/dL 100-19 9 Not Available [facility] [address] [place] [address], [address], 01/15/2025 07:07:49 12/28/19 25 12/29/2024 LIPID PANEL W/ CHOL/ HDL RATIO triglyceride s 40 mg/dL 0-149 Not Available [facility] [address] [place], [address], 01/15/2025 07:07:49 12/28/19 25 12/29/2024 LIPID PANEL W/ CHOL/ HDL RATIO HDL cholesterol 69 mg/dL >39 Not Available [facility] [address] [place], [address], 01/15/2025 07:07:49 12/28/19 25 12/29/2024 LIPID PANEL W/ CHOL/ HDL RATIO VLDL cholesterol oscar 11 mg/dL 5-40 Not Available [facility] [address] [place], [address], 01/15/2025 07:07:49 12/28/19 25 12/29/2024 LIPID PANEL W/ CHOL/ HDL RATIO LDL chol calc ([facility]) 37 mg/dL 0-99 Not Available [facility] [address] [place], [address], 01/15/2025 07:07:49 12/28/19 25 12/29/2024 LIPID PANEL W/ CHOL/ HDL RATIO T. chol/HDL ratio 1.7 ratio 0.0-5. 0 T. Chol/ HDL Ratio Men Women 1/2 Avg.R isk 3.4 3.3 Avg.R isk 5.0 4.4 2X Avg.R isk 9.6 7.1 3X Avg.R isk 23.4 11.0 Not Available [facility] [address] [place], [address], 01/15/2025 07:07:49 12/28/19 25 12/29/2024 TSH+F REE T4 TSH 2.480 uIU/m L 0.450- 4.500 Not Available [facility] [address] [place], [address], 01/15/2025 07:07:50 12/28/19 25 12/29/2024 TSH+F REE T4 T4,free(dire ct) 1.19 NG/dL 0.82-1 .77 Not Available [facility] [address] [place], [address], 01/15/2025 07:07:50 12/28/19 25 12/29/2024 COMP. METAB OLIC PANEL (14) glucose 78 mg/dL 70-99 Not Available [facility] [address] [place], [address], 01/15/2025 07:07:50 12/28/19 25 12/29/2024 COMP. METAB OLIC PANEL (14) BUN 13 mg/dL 8-27 Not Available [facility] [address] [place], [address], 01/15/2025 07:07:50 12/28/19 25 12/29/2024 COMP. METAB OLIC PANEL (14) creatinine 0.80 mg/dL 0.76-1 .27 Not Available [facility] [address] [place], [address], 01/15/2025 07:07:50 12/28/19 25 12/29/2024 COMP. METAB OLIC PANEL (14) eGFR 99 mL/mi n/1.7 3 >59 Not Available [facility] [address] [place], [address], 01/15/2025 07:07:50 12/28/19 25 12/29/2024 COMP. METAB OLIC PANEL (14) BUN/creatini ne ratio 16 10-24 Not Available [facility] [address] [place], [address], 01/15/2025 07:07:50 12/28/19 25 12/29/2024 COMP. METAB OLIC PANEL (14) sodium 141 mmol/ L 134-14 4 Not Available [facility] [address] [place], [address], 01/15/2025 07:07:50 12/28/19 25 12/29/2024 COMP. METAB OLIC PANEL (14) potassium 4.2 mmol/ L 3.5-5. 2 Not Available [facility] [address] [place], [address], 01/15/2025 07:07:50 12/28/19 25 12/29/2024 COMP. METAB OLIC PANEL (14) chloride 112 mmol/ L 96-106 above high normal Not Available [facility] [address] [place], [address], 01/15/2025 07:07:50 12/28/19 25 12/29/2024 COMP. METAB OLIC PANEL (14) carbon dioxide, total 20 mmol/ L 20-29 Not Available [facility] [address] [place], [address], 01/15/2025 07:07:50 12/28/19 25 12/29/2024 COMP. METAB OLIC PANEL (14) calcium 8.6 mg/dL 8.6-10 .2 Not Available [facility] [address] [place], [address], 01/15/2025 07:07:50 12/28/19 25 12/29/2024 COMP. METAB OLIC PANEL (14) protein, total 6.0 g/dL 6.0-8. 5 Not Available [facility] [address] [place], [address], 01/15/2025 07:07:50 12/28/19 25 12/29/2024 COMP. METAB OLIC PANEL (14) albumin 3.4 g/dL 3.9-4. 9 below low normal Not Available [facility] [address] [place], [address], 01/15/2025 07:07:50 12/28/19 25 12/29/2024 COMP. METAB OLIC PANEL (14) globulin, total 2.6 g/dL 1.5-4. 5 Not Available [facility] [address] [place], [address], 01/15/2025 07:07:50 12/28/19 25 12/29/2024 COMP. METAB OLIC PANEL (14) bilirubin, total 1.4 mg/dL 0.0-1. 2 above high normal Not Available [facility] [address] [place], [address], 01/15/2025 07:07:50 12/28/19 25 12/29/2024 COMP. METAB OLIC PANEL (14) alkaline phosphatase 257 IU/L 44-121 above high normal Not Available [facility] [address] [place], [address], 01/15/2025 07:07:50 12/28/19 25 12/29/2024 COMP. METAB OLIC PANEL (14) AST (SGOT) 35 IU/L 0-40 Not Available [facility] [address] [place], [address], 01/15/2025 07:07:50 12/28/19 25 12/29/2024 COMP. METAB OLIC PANEL (14) ALT (SGPT) 41 IU/L 0-44 Not Available [facility] [address] [place], [address], 01/15/2025 07:07:50 12/28/19 25 12/29/2024 IRON AND TIBC iron bind.cap.(TI BC) 257 ug/dL 250-45 0 Not Available [facility] [address] [place], [address], 01/15/2025 07:07:51 12/28/19 25 12/29/2024 IRON AND TIBC UIBC 236 ug/dL 111-34 3 Not Available [facility] [address] [place], [address], 01/15/2025 07:07:51 12/28/19 25 12/29/2024 IRON AND TIBC iron 21 ug/dL 38-169 below low normal Not Available [facility] [address] [place], [address], 01/15/2025 07:07:51 12/28/19 25 12/29/2024 IRON AND TIBC iron saturation 8 % 15-55 alert low Not Available [facility] [address] [place], [address], 01/15/2025 07:07:51 12/28/19 25 12/29/2024 HEMOG LOBIN A1C hemoglobin A1C 6.0 % 4.8-5. 6 above high normal Predi abete s: 5.7 - 6.4 Diabe nelda: >6.4 Glyce davian contr ol for adult s with diabe nelda: <7.0 Not Available [facility] [address] [place], [address], 01/15/2025 07:07:52 12/28/19 25 12/29/2024 REMY TIN ferritin 18 NG/mL 30-400 below low normal Not Available [facility] [address] [place], [address], 01/15/2025 07:07:52 12/28/19 25 12/29/2024 CBC WITH DIFFE RENTI AL/PL ATELE T WBC 7.5 x10e3 /uL 3.4-10 .8 Not Available [facility] [address] [place], [address], 01/15/2025 07:07:53 12/28/1912/29/2024 CBC WITH DIFFE RENTI AL/PL ATELE T RBC 3.92 x10e6 /uL 4.14-5 .80 below low normal Not Available [facility] [address] [place], [address], 01/15/2025 07:07:53 12/28/1912/29/2024 CBC WITH DIFFE RENTI AL/PL ATELE T hemoglobin 10.9 g/dL 13.0-1 7.7 below low normal Not Available [facility] [address] [place], [address], 01/15/2025 07:07:53 12/28/19 25 12/29/2024 CBC WITH DIFFE RENTI AL/PL ATELE T hematocrit 35.2 % 37.5-5 1.0 below low normal Not Available [facility] [address] [place], [address], 01/15/2025 07:07:53 12/28/19 25 12/29/2024 CBC WITH DIFFE RENTI AL/PL ATELE T MCV 90 fL 79-97 Not Available [facility] [address] [place], [address], 01/15/2025 07:07:53 12/28/19 25 12/29/2024 CBC WITH DIFFE RENTI AL/PL ATELE T MCH 27.8 pg 26.6-3 3.0 Not Available [facility] [address] [place], [address], 01/15/2025 07:07:53 12/28/19 25 12/29/2024 CBC WITH DIFFE RENTI AL/PL ATELE T MCHC 31.0 g/dL 31.5-3 5.7 below low normal Not Available [facility] [address] [place], [address], 01/15/2025 07:07:53 12/28/19 25 12/29/2024 CBC WITH DIFFE RENTI AL/PL ATELE T RDW 16.2 % 11.6-1 5.4 above high normal Not Available [facility] [address] [place], [address], 01/15/2025 07:07:53 12/28/19 25 12/29/2024 CBC WITH DIFFE RENTI AL/PL ATELE T platelets 88 x10e3 /uL 150-45 0 alert low Plate let count verif ied by lisa marcial of perip heral blood smear . Not Available [facility] [address] [place], [address], 01/15/2025 07:07:53 12/28/1912/29/2024 CBC WITH DIFFE RENTI AL/PL ATELE T neutrophils 72 % notest ab. Not Available [facility] [address] [place], [address], 01/15/2025 07:07:53 12/28/19 25 12/29/2024 CBC WITH DIFFE RENTI AL/PL ATELE T lymphs 15 % notest ab. Not Available [facility] [address] [place], [address], 01/15/2025 07:07:53 12/28/19 25 12/29/2024 CBC WITH DIFFE RENTI AL/PL ATELE T monocytes 10 % notest ab. Not Available [facility] [address] [place], [address], 01/15/2025 07:07:53 12/28/19 25 12/29/2024 CBC WITH DIFFE RENTI AL/PL ATELE T eos 3 % notest ab. Not Available [facility] [address] [place], [address], 01/15/2025 07:07:53 12/28/19 25 12/29/2024 CBC WITH DIFFE RENTI AL/PL ATELE T basos 0 % notest ab. Not Available [facility] [address] [place], [address], 01/15/2025 07:07:53 12/28/19 25 12/29/2024 CBC WITH DIFFE RENTI AL/PL ATELE T neutrophils (absolute) 5.4 x10e3 /uL 1.4-7. 0 Not Available [facility] [address] [place], [address], 01/15/2025 07:07:53 12/28/19 25 12/29/2024 CBC WITH DIFFE RENTI AL/PL ATELE T lymphs (absolute) 1.1 x10e3 /uL 0.7-3. 1 Not Available [facility] [address] [place], [address], 01/15/2025 07:07:53 12/28/19 25 12/29/2024 CBC WITH DIFFE RENTI AL/PL ATELE T monocytes(ab solute) 0.7 x10e3 /uL 0.1-0. 9 Not Available [facility] [address] [place], [address], 01/15/2025 07:07:53 12/28/19 25 12/29/2024 CBC WITH DIFFE RENTI AL/PL ATELE T eos (absolute) 0.2 x10e3 /uL 0.0-0. 4 Not Available [facility] [address] [place], [address], 01/15/2025 07:07:53 12/28/19 25 12/29/2024 CBC WITH DIFFE RENTI AL/PL ATELE T baso (absolute) 0.0 x10e3 /uL 0.0-0. 2 Not Available [facility] [address] [place], [address], 01/15/2025 07:07:53 12/28/19 25 12/29/2024 CBC WITH DIFFE RENTI AL/PL ATELE T immature granulocytes 0 % notest ab. Not Available [facility] [address] [place], [address], 01/15/2025 07:07:53 12/28/19 25 12/29/2024 CBC WITH DIFFE RENTI AL/PL ATELE T immature grans (abs) 0.0 x10e3 /uL 0.0-0. 1 Not Available [facility] [address] [place], [address], 01/15/2025 07:07:53 12/28/19 25 12/29/2024 CBC WITH DIFFE RENTI AL/PL ATELE T hematology comments: Note: Verif ied by serafin brown exami natkeily n. Not Available [facility] [address] [place], [address], 01/15/2025 07:07:53 12/28/19 25 01/15/2025 TESTO STERO NE, TOTAL , LC/MS testosterone , total, lc/MS 492 NG/dL This test was devel oped and its perfo rmanc e marci cteri stics deter mined by [facility]. It has not been clear ed or appro nina by the Food and Drug Admin istra tion. Refer ence Range : Adult Males >18 years 264 - 916 This [facility] LC/MS -MS metho d is curre ntly certi fied by the CDC Hormo ne Stand ardiz ation Progr am (HoST ). Adult male refer ence inter ksenia is based on a popul ation of healt hy nonob wallace males (BMI <3 0) betwe en 19 and 39 years old. Ne mark, et.al . JCEM 2017, 102;1 161-1 173 PMID: 85955 103. Not Available [facility] [address] [facility], [place], [address], 01/15/2025 07:07:54 10/27/20 24 10/26/2024 CT, chest , w/o contr ast No observ ation record ed. [facility] [address], [place], [address], 11/03/2024 09:54:00 11/10/20 24 01/01/2022 colon oscop y scree david (PROC ) No observ ation record ed. BARCODE Not Available 2023 15:42:55 Result Notes None recorded. Problems Name Problem SNOMED Code Status Onset Date Resolution Date Notes Provider Name and Address Organization Details Recorded Time Long-term drug therapy Active 2023 DEBRA Sparks Attn: Papa conway,[address] [facility], [place], [address], [facility] 4 16:46:04 Hyperlipidemia 31414314 Active 2023 DEBRA Sparks Attn: Papa conway,[address] [facility], [place], [address], [facility] 4 16:46:05 Cirrhosis - non-alcoholic 334111906 Active 2023 DEBRA Sparks Attn: Papa conway,[address] [facility], [place], [address], [place] - [facility] 4 16:46:05 Asthma 046032814 Active 2023 DEBRA Sparks Attn: Papa conway,[address] [facility], [place], [address], [place] - [facility] 4 16:46:06 Type 2 diabetes mellitus without complication 773303338 Active 2023 DEBRA Sparks Attn: Accountmat g,[address] [facility], [place], [address], [place] [facility] 4 16:46:07 Iron deficiency anemia 57384045 Active 2023 DEBRA Sparks Attn: Papa g,[address] [facility], [place], [address], [place] - [facility] 4 08:02:33 Body mass index 20-24 - normal 079609917 Active 2023 DEBRA Sparks Attn: Ppaa conway,[address] [facility], [place], [address], [place] - [facility] 4 08:03:20 Fatigue 30294477 Active 2024 DEBRA Sparks Attn: Papa conway,[address] [facility], [place], [address], [place] - [facility] 5 16:15:51 Problem Notes None recorded. Procedures Surgical History Date Name Laterality Status Provider Name and Address Organization Details Recorded Time 5 Diabetic Foot Exam completed Brook Porras MA [facility] 11/27/2024 16:44:28 3 Hernia Repair completed SHANDRA Patterson [facility] 05/22/2024 16:25:46 Eye Surgery completed SHANDRA Patterson [facility] 05/22/2024 17:03:34 Coronary artery bypass/reop completed SHANDRA Patterson - [facility] 05/22/2024 17:04:03 Imaging Results Imaging Date Name Status LastModified by Organiz ation Details LastModified Time 10/26/2024 CT, chest, w/o contrast completed [facility] [address], [place], [address], 11/03/2024 09:54:00 01/01/2022 colonoscopy screening (PROC) completed [facility] Information not available 11/10/2024 15:42:55 Procedure Notes None recorded. Medical Equipment None Reported. Allergies Allergen ID Allergen Name Allergen Category Reaction Reaction Severity Criticality Documentation Date Start Date Code Code System Note Provider Name and Address Organization Details Recorded Time 256308 Product containin g penicilli n (product) medicatio n Not available Not available Not available 05/22/2024 21995 8001 SNOMED Brook Porras MA null, [place] - [facility] 16:23:10 Medications Name Sig Start Date Stop Date Status Note LastModified by Organization Details LastModified Time atorvastati n 40 mg tablet Take 1 tablet by mouth at bedtime active Not Available Not Available No t Available nystatin 100,000 unit/mL oral suspension Take 5 mL 4 times a day by oral route as directed for 10 days. 11/27 completed Not Available Not Available Not Available albuterol sulfate 2.5 mg/3 mL (0.083 %) solution for nebulizatio n USE 1 VIAL IN NEBULIZER THREE TIMES DAILY NEEDED active Not Available Not Available No t Available azithromyci n 250 mg tablet TAKE 2 TABLETS (500 MG) BY ORAL ROUTE ONCE DAILY FOR 1 DAY THEN 1 TABLET (250 MG) BY ORAL ROUTE ONCE DAILY FOR 4 DAYS 11/27 completed Not Available Not Available Not Available prednisone 20 mg tablet TAKE 2 TABLETS BY MOUTH ONCE DAILY FOR 5 DAYS 07/27 completed Not Available Not Available Not Available omeprazole 40 mg capsule,del ayed release Take 1 capsule by mouth every day 2024 active Not Available Not Available Not Avai lable colesevelam 625 mg tablet Take 3 tablets every day by oral route. active Not Available Not Available No t Available montelukast 10 mg tablet Take 1 tablet by mouth every day 2024 active Not Available Not Available Not Avai lable methylpredn isolone 4 mg tablets in a dose pack take as directed starting 02/24 completed Not Available Not Available Not Available albuterol sulfate HFA 90 mcg/actuati on aerosol inhaler Inhale 2 puffs by mouth four times a day as needed active Not Available Not Available No t Available spironolact one 50 mg tablet Take 1 tablet by mouth twice daily 2024 active Not Available Not Available Not Avai lable metoprolol tartrate 25 mg tablet Take 0.5 tablets twice a day by oral route. active Not Available Not Available No t Available aspirin 325mg daily active Not Available Not Available No t Available Symbicort 160 mcg-4.5 mcg/actuati on HFA aerosol inhaler Inhale 2 puffs by mouth twice daily. 2023 active Not Available Not Available Not Avai lable Farxiga 10 mg tablet Take 1 tablet every day by oral route. 06/11 completed Not Available Not Available Not Available Farxiga 5 mg tablet Take 1 tablet(s) every day by oral route. 2024 active Not Available Not Available Not Avai lable Trulicity 1.5 mg/0.5 mL subcutaneou s pen injector Inject by subcutane ous route. 06/11 completed Not Available Not Available Not Available Trulicity 0.75 mg/0.5 mL subcutaneou s pen injector INJECT 0.75MG UNDER THE SKIN WEEKLY active Not Available Not Available No t Available Vitals Date Recorded Body height Respiratory rate Body mass index (BMI) Body weight Oxygen saturation Oxygen saturation in Arterial blood by Pulse oximetry Heart rate Systolic blood pressure Diastolic blood pressure Provider Name and Address Organization Details Last Updated DateTime 4 177.8 cm 20 /min 22.2 kg/m2 28585.3 8 g 96 % 96 % 60 /min 118 mm[Hg] 60 mm[Hg] Brook Porras MA [place] - [facility] 4 16:30:24 Date Recorded Systolic blood pressure Diastolic blood pressure Provider Name and Address Organization Details Last Updated DateTime 05/22/2024 128 mm[Hg] 60 mm[Hg] DEBRA Sparks Attn: Accounting,[address] [place], [address], [facility] 05/22/2024 16:54:13 Date Recorded Body height Body mass index (BMI) Body weight Respiratory rate Oxygen saturation Oxygen saturation in Arterial blood by Pulse oximetry Heart rate Systolic blood pressure Diastolic blood pressure Provider Name and Address Organization Details Last Updated DateTime 177.8 cm 22.4 kg/m2 32759.4 1 g 20 /min 97 % 97 % 60 /min 120 mm[Hg] 78 mm[Hg] Brook Porras MA [facility] 16:37:05 Date Recorded Systolic blood pressure Diastolic blood pressure Provider Name and Address Organization Details Last Updated DateTime 11/27/2024 110 mm[Hg] 80 mm[Hg] DEBRA Sparks Attn: Accounting,[address] [place], [address], [facility] 11/27/2024 17:03:03 Social History Question Answer Notes LastModified by Organizat ion Details LastModified Time Tobacco Smoking Status Never Smoker Brook Porras MA null, [facility] 05/22/2024 16:24:52 What Is Your Level Of Alcohol Consumption? None Information not available 05/22/2024 Are You Blind Or Do You Have Difficulty Seeing? Yes Glasses Information not available 05/22/2024 What Is Your Level Of Caffeine Consumption? Moderate Information not available 05/22/2024 In The 14 Days Before Symptom Onset, Have You Had Close Contact With A Laboratory-confir med COVID-19 While That Case Was Ill? No Information not available 05/21/2024 In The 14 Days Before Symptom Onset, Have You Had Close Contact With A Person Who Is Under Investigation For COVID-19 While That Person Was Ill? No Information not available 05/21/2024 Have You Been To An Area Known To Be High Risk For COVID-19? No Information not available 05/21/2024 Are You Currently Employed? Yes Information not available 11/27/2024 Are You Deaf Or Do You Have Serious Difficulty Hearing? No Information not available 05/22/2024 What Type Of Diet Are You Following? REGULAR Information not available 05/22/2024 Are There Any Guns Present In Your Home? No Information not available 05/22/2024 What Was The Date Of Your Most Recent Tobacco Screening? 11/27/2024 Information not available 11/27/2024 Do You Use Your Seat Belt Or Car Seat Routinely? Yes Information not available 05/22/2024 Do You Have Smoke And Carbon Monoxide Detectors In Your Home? Yes Information not available 05/21/2024 Do You Use Any Illicit Or Recreational Drugs? No Information not available 05/22/2024 Do You Use Sunscreen Routinely? No Information not available 05/22/2024 Has Tobacco Cessation Counseling Been Provided? Yes Information not available 05/21/2024 On What Date Was Tobacco Cessation Counseling Provided? 11/27/2024 Information not available 11/27/2024 Do You Or Have You Ever Used Any Other Forms Of Tobacco Or Nicotine? No Information not available 05/22/2024 Sex: Male Functional Status Question Answer Note LastModified by Organizat ion Details LastModified Time Are you able to care for yourself? Yes Information not available 05/21/2024 What is your exercise level? Occasional walking Information not available 05/22/2024 Mental Status None recorded. Family History Relationship Description Onset Age of this Age Resolved Age Notes LastModified by Organization Details LastModified Time Mother Hypertensive disorder [email or web address] Not available 2023 16:26:50 Mother Diabetes mellitus [email or web address] Not available 2023 17:04:25 Brother Asthma [email or web address] Not available 05/22/2024 16:27:36 Brother Asthma [email or web address] Not available 05/22/2024 16:27:36 Brother Asthma [email or web address] Not available 05/22/2024 16:27:36 Brother Asthma tcarterma Not available 05/22/2024 16:27:36 Brother Attention deficit hyperactivit y disorder tcarterma Not available 05/22 17:04:16 Father Diabetes mellitus [email or web address] Not available 2023 17:04:25 Father Heart disease tcarterma Not available 2023 17:04:31 Medical History Condition Response Diabetes Y High Blood Pressure Y Asthma Y Immunizations Vaccine Type Date Status Note Provider Nam e and Address Organization Details Recorded Time Influenza, MDCK, quadrivalent, PF 3 completed Aline Messer, RMA [place], [place] - [facility] 05/25/2024 12:32:31 influenza, unspecified formulation 1 completed Aline Messer, R[place] [facility] 05/25/2024 12:32:31 Influenza, split virus, quadrivalent, PF 1 completed Aline Messer, R[place] [facility] 05/25/2024 12:32:31 Influenza, split virus, quadrivalent, PF 8 completed Aline Messer, R[place] [facility] 05/25/2024 12:32:31 Past Encounters Encounter ID Performer Location Encounter Start Date Encounter Closed Date Diagnosis/Indication Diagnosis SNOMED-CT Code Diagnosis ICD10 Code Diagnosis Note [id number] Kai Syed MD [facility] - [place] [address] [facility] [address] [place] [address] 05/22/2024 15:46:59 05/22/2024 16:57:14 Adult health examination 651616660 Z00.01 Annual wellness exam complete Type 2 jennifer betes mellitus without complication 942924517 E11.9 Continue Trulicity 1.5 mg weekly dosing and Farxiga 10 mg daily. Due for updated A1c and albumin urine testing Asthma 251092115 J45.90 9 Continue Symbicort 160 mcg/4.5 mcg 2 puffs twice daily and p.r.n. albuterol HFA Cirrhosis - non-alcoholic 658629823 K74.60 Encouraged patient to reach out and schedule routine follow-up with his hepatologi st Hyperlipidemia 05919750 E78.5 Continue Welchol tablets at this time and check updated fasting lipids Long-term drug therapy 903485204 Z79.899 Routine CMP and thyroid testing is ordered Screening for malignant neoplasm of prostate 181990119 Z12.5 Annual PSA level is due Iron defic iency anemia 72140592 D50.9 Underlying iron-defic iency anemia is present which may be now related to anemia of chronic disease. He has had GI workup completed in the past recently. He is due for updated CBC and iron studies Cough 11188790 R05.9 Start Z-Edgar therapy and prednisone 40 mg daily for 5 days to help with post viral infection cough/kaylah rgic reactive airway. Body mass index 20-24 - normal 876937088 Z68.22 BMI is 22.2 [id number] Kai Syed MD [facility] - [place] Clancy [address] [place] [address] 11/27/2024 16:15:34 12/07/2024 15:07:31 Type 2 diabetes mellitus without complication 991466775 E11.9 Continue Trulicity 1.5 mg weekly dosing and Farxiga 10 mg daily. Due for updated A1c Asthma 085257710 J45.90 9 Continue Symbicort 160 mcg/4.5 mcg 2 puffs twice daily and p.r.n. albuterol HFA. Cirrhosis - non-alcoholic 944515346 K74.60 Encouraged patient to reach out and schedule routine follow-up with his hepatologi st. He has not seen them recently and is due to schedule and he has not heard from them Hyperlipidemia 59843656 E78.5 Continue Welchol tablets at this time and check updated fasting lipids. Iron defic iency anemia 83738022 D50.9 Underlying iron-defic iency anemia is present which may be now related to anemia of chronic disease. He has had GI workup completed in the past recently. He is due for updated CBC and iron studies Long-term drug therapy 085662699 Z79.899 Routine CMP and thyroid testing is ordered Body mass index 20-24 - normal 161940796 Z68.[address] of chest abnormal 369 4156082 4919478 R93.[address] scan that was ordered October 26 by this office the following was found CT scan of the chest shows he does just have overall mild diffuse lung disease which is consistent with either mild pulmonary edema or the radiologis t even says it could be an atypical type pneumonia. He had recently had a Z-Edgar and steroid therapy so atypical pneumonia should have been treated appropriat dorian based off of that. He was referred to a pulmonolog ist at that time and has not called to schedule with them at all we are providing him with another pulmonary referral today and have directed him that he needs to establish officially with the pulmonolog y specialist for his lungs. Has underlying asthma and abnormal chest CT findings that require specialist opinion and management decisions. Fatigue 80580731 R53.83 Patient would like to have his testostero ne level checked due to chronic fatigue Coronary atherosclerosis 883466738 I25.10 Patient has a history of underlying coronary artery and bypass graft. He is on statin therapy. He has not seen his cardiologi st in the past year. Patient has been recommende d to call and schedule and reestablis h so that he has an updated consultati on with them. History of coronary artery bypass grafting 604148434 Z95.1 History noted patient is currently asymptomat ic, no chest pain or shortness of breath or dyspnea on exertion beyond his baseline Health Concerns Section Related Observation LastModified by Organization Detai ls LastModified Time None Recorded Concern Status LastModified by Organization Details LastModified Time None Recorded Advance Directives Directive None Recorded Payers Encounter Date Sequence Insurance Name Policy Number Policy Flanagan Covered Member ID Flanagan Member ID Guarantor Name 05/22/2024 1 [facility] [id number] Kai Null [id number] Kai Null 11/27/2024 1 [facility] [id number] Kai Null [id number] Kai Null Notes Date Note Type Note Provider Name and Address Organization Details Recorded Time 05/22/2024 text/html Asthma F/UReport ed bypatient.Notes:Trevon carmona has underlying asthma and takes Symbicort and has albuterol inhalersCoronary Artery Disease F/UReported bypatient.Notes:hx of quad bypass. sees cardiology annually. Dr. Ham follows with him.DiabetesReported bypatient.Notes:Trevon carmona has underlying diabetes and takes Farxiga 10 mg daily and Trulicity weekly injectable dosing Liver- nonalcoholic cirrhosis. He has not seen a liver specialist recently Patient does have a history of anemia and chronic thrombocytopenia as a result of liver disease. He does have a staff radiation therapist but has not seen them recently. He is due for labs DEBRA Sparks Attn: Accounting,[address] [place], [address], [facility] 06/10/2024 08:03:51 11/27/2024 text/html Asthma F/UReport ed bypatient.Notes:Trevon carmona has underlying asthma and takes Symbicort and has albuterol inhalersCoronary Artery Disease F/UReported bypatient.Notes:hx of quad bypass. sees cardiology annually. Dr. Ham follows with him.DiabetesReported bypatient.Notes:Trevon carmona has underlying diabetes and takes Farxiga 10 mg daily and Trulicity weekly injectable dosing Liver- nonalcoholic cirrhosis. He has not seen a liver specialist recently Patient does have a history of anemia and chronic thrombocytopenia as a result of liver disease. He does have a staff radiation therapist but has not seen them recently. He is due for labs DEBRA Sparks Attn: Accounting,[address] [facility], [place], [address], [facility] 12/13/2024 16:16:17
--- OUTSIDE RECORDS SUMMARY | 2025-03-17 13:43 | XMS_ITS | Referral Summary ---
Author Organization [facility] Address [address] [place] [address] Care Team Providers Care Batch Unloader Name Role Phone [facility] Pr ovider Hakan Covarrubias DO Unavailable [phone] Allergies Active Allergy Reactions Criticality Noted Date [...] CABG 02/09/2021 Coronary artery disease invo lving wilton coronary artery of wilton heart with unstable angina pectoris 01/10/2021 Overview (01/10/2021): Added automatically from request for surgery [id number] Immunizations Immunization Administration Dates Next Due Influenza, Unspecified 09/25/2021 Social History Tobacco Use Types Packs/Day Years [...] on file Legal Sex Male 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 Gender Identity Not on file Sexual Orientation Not on file 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 Not on file Not on file Last Filed Vital Signs Vital Sign Reading Time Taken Comments Blood Pressure 110/52 01/14/2024 3:29 PM 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 TECHNICIAN Pulse 62 01/14/2024 3:29 PM 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 HUSBANDRY TECHNICIAN Temperature 36.8 C (98.2 F) 10/09/2023 2:49 PM 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 HUSBANDRY TECHNICIAN Respiratory Rate 16 10/09/2023 2:49 PM 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 HUSBANDRY TECHNICIAN Oxygen Saturation 97% 01/14/2024 3:29 PM 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 HUSBANDRY TECHNICIAN Inhaled Oxygen Concentration - - Weight 74.4 kg (164 lb) 01/14/2024 3:29 PM 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 HUSBANDRY TECHNICIAN Height 177.8 cm (5' 10 ) 01/14/2024 3:29 PM 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 HUSBANDRY TECHNICIAN Body Mass Index 23.53 01/14/2024 3:29 PM 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 HUSBANDRY TECHNICIAN Plan of Treatment Not on file Medical Devices Implanted Type Area Firmware Software Verification Engineer Device Identifier Shelf Expiration Date Model / Serial / Lot [employer]/C R Bard 6x3in Large Pore Knit Monofilament Smooth [place] [id number] - [id number] Implanted:Qty: 1 on 05/24/2023 by Gerardo West MD at [facility] Right: Inguinal [employer] [id number] 09/07/2027 [id number] / / [id number] Procedures Procedure Name Priority Date/Time Associated Diagnosis Comments HEPATITIS C ANTIBODY Routine 12/28/2021 9:49 AM 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 HUSBANDRY TECHNICIAN Encounter for hepatitis C screening test for low risk patient from Last 3 Months or Most Recently Relevant to Health Maintenance Results * Hepatitis C antibody (12/28/2021 9:49 AM 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 HUSBANDRY TECHNICIAN) Hep C Ab Nonreactive Nonreactive LOREN TAM [...] revised on 2020. Blood 12/28/2021 9:49 AM 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 HUSBANDRY TECHNICIAN 12/28/2021 12:36 PM 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 HUSBANDRY TECHNICIAN Hakan Covarrubias DO LAB MICROBIOLOGY - GENERAL O RDERABLES Final Result LOREN TAM [address] [facility] Department [place] [address] from Last 3 Months or Most Recently Relevant to Health Maintenance Insurance [facility] [employer] PL[employer] CHOICE PLUS CHOICE PLUS Advance Directives For more information, please contact: [phone] * Full Code (Latest Code Status on File) Date Activated Date Inactivated Comments 01/12/2021 3:26 PM 01/17/2021 11:21 PM Care Teams Batch Unloader Relationship Specialty Start Date End Date Rhoda Pacheco PA PCP - General Physician Auto Deal[employer] [place] 12/02/20 Hakan Covarrubias DO [address] [place] [address] MEDICAL ONCOLOGY, [place] [address] Medical Oncologist/Stitch Bonding Machine Drawer In Hematology and Oncology 01/08/22
--- OUTSIDE RECORDS SUMMARY | 2025-03-17 13:43 | XMS_ITS | Clinical Summary ---
Author Organization [facility] [employer] Address [address] [place] [address] Care Team Providers Care Keno Dealer Name Role Phone Rhoda Lugo Primary Care Pr ovider Source Comments [facility],non-owned Affiliates and Associated Physician Practices is amultiple site organization consisting of ambulatory clinics and hospital sitesin [place], [place], [place] and [place]. This disclosure is being madepursuant to the Care Everywhere program and may not contain all information available regarding this patient. Last updated 18.[facility] [employer] Allergies Active Allergy Reactions Criticality Noted Date Comments Penicillins Unknown 12/26/2020 Medications * Be aware that medications may not be up to date on this document. Alwaysverify current medications with the patient. atorvastatin (Lipitor) 40 MG tablet Take 1 (one) tablet by mouth at bedtime 06/20/20 22 Active dapagliflozin propanediol (Farxiga) 5 MG tablet Take 1 (one) tablet by mouth once daily Active metoprolol tartrate IR (Lopressor) 25 MG tablet Take 0.5 (one-half) tablet by mouth once daily 06/20/20 22 Active montelukast (Singulair) 10 MG tablet Take 1 (one) tablet by mouth at bedtime Active aspirin (Aspirin) 325 MG tablet Take 1 (one) tablet by mouth once daily 01/19/20 21 Active omeprazole (PriLOSEC) 40 MG capsule Take 1 (one) capsule by mouth once daily Active colesevelam (Welchol) 625 MG tablet Take 1 (one) tablet by mouth 2 times daily with morning and evening meal Active albuterol HFA (Proventil; Ventolin; Proair) 108 (90 Base) MCG/ACT inhaler Inhale 2 (two) puffs by mouth every 6 hours as needed Active Trulicity 0.75 MG/0.5ML injection Inject 0.5 mL subcutaneously every 7 days 11/30/19 23 Active amLODIPine (Norvasc) 10 MG tablet Take 1 (one) tablet by mouth once daily Active spironolactone (Aldactone) 50 MG tablet Take 1 (one) tablet by mouth 2 times daily Active ferrous sulfate 325 (65 FE) MG tablet Take 1 (one) tablet by mouth once daily 100 tablet 1 01/01/20 23 Active Additional Information Patient not taking.Reported on 09/09/2023 furosemide (Lasix) 40 MG tablet Take 1 tablet by mouth once daily 90 tablet 02/28/20 24 Active Active Problems Problem Noted Date Diagnosed Date 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 Other ascites 07/08/2022 Hx of CABG 07/08/2022 Thrombocytopenia 07/08/2022 Metabolic syndrome 07/08/2022 Family History Medical History Relation Name Comments Hypertension Father Other - Cardiac Father Hyperlipidemia Mother Hypertension Mother Relation Name Status Comments Father Mother Social History Tobacco Use Types Packs/Day Years Used Date Smoking Tobacco: Never Smokeless Tobacco: Never Tobacco Cessation:Counseling Given: Not Answered Alcohol Use Standard Drinks/Week Comments Not Currently 0 (1 standard drink = 0.6 oz pure alcohol) RARE- states was never really a drinker Sex and Gender Information Value Date Recorded Sex Assigned at Not on file Legal Sex Male 9:09 AM SUPPLY CHAIN INTERN Gender Identity Not on file Sexual Orientation Not on file Last Filed Vital Signs Vital Sign Reading Time Taken Comments Blood Pressure 121/75 09/09/2023 12:58 PM CDT Pulse 64 09/09/2023 12:58 PM CDT Temperature 36.9 C (98.4 F) 09/09/2023 12:58 PM CDT Respiratory Rate 18 09/09/2023 12:58 PM CDT Oxygen Saturation 100% 09/09/2023 12:58 PM CDT Inhaled Oxygen Concentration - - Weight 72.1 kg (159 lb) 09/09/2023 12:58 PM CDT Height 177.8 cm (5' 10 ) 02/18/2023 10:18 AM CDT Body Mass Index 22.81 02/18/2023 10:18 AM CDT Plan of Treatment Health Maintenance Due Date Last Done Comments DILEEP (AGES 45-75) - COL ON CA SCREENING 1960 COLON MONITORING 1960 COLONOSCOPY - COLON CA SCREENING 1960 CT COLONOGRAPHY - COLON CA SCREENING 1960 Colorectal Cancer Screening 1960 FIT - COLON CA SCREENING 1960 FLEX SIG - COLON CA SCREENING 1960 HIV SCREENING 1975 DTAP/TDAP/TD VACCINES (1 - Tdap) 1979 PNEUMOCOCCAL VACCINE 50+ (1 of 2 - PCV) 1979 ZOSTER VACCINE (1 of 2) 2010 HEPATITIS B VACCINE (1 of 3 - Risk 3-dose series) 2020 Respiratory Syncytial Virus (RSV) Vaccine Pt: or over 60 yrs (1 - Risk 60-74 years 1-dose series) 2020 COVID-19 VACCINE (1 - 2023-2 5 season) 2024 DEPRESSION SCREENING 11/11/2024 INFLUENZA VACCINE (Season Ended) 2025 09/25/20 HEPATITIS C SCREENING Completed 12/31/2022 HIB VACCINE Aged Out No longer eligi ble based on patient's age to complete this topic HPV VACCINE Aged Out No longer eligi ble based on patient's age to complete this topic MENINGOCOCCAL (Group B) VACC INE SHARED DECISION-MAKING Aged Out No longer eligibl e based on patient's age to complete this topic MENINGOCOCCAL GROUPS A/C/Y/W VACCINE Aged Out No longer eligible b ased on patient's age to complete this topic Goals Goal Patient Goal Type Associated Problems Recent Progress Patient-Stated? Author Medication Management General On track( 023 2:12 PM SUPPLY CHAIN INTERN) No Tess Cruz, RN Note: Expected end date: ongoing Interventions: Take all medications as prescribed Let your doctor know right away about any changes in your medications Make sure to request a refill of your medication at least one week prior to your last dose Procedures Procedure Name Priority Date/Time Associated Diagnosis Comments HEPATITIS C ANTIBODY Routine 12/31/2022 9:23 AM SUPPLY CHAIN INTERN Decompensated hepatic cirrhosis from Last 3 Months or Most Recently Relevant to Health Maintenance Results * HEPATITIS C ANTIBODY (12/31/2022 9:23 AM SUPPLY CHAIN INTERN) Hepatitis C Antibody Non Reactive Non Reactive [facility] INSURANCE BILL Comment: HCV antibody alone does not differentiate between previously resolved infection and active infection. Equivocal and Reactive HCV antibody results should be followed up with an HCV RNA test to support the diagnosis of active HCV infection. FASTING Blood BLOOD SPECIMEN / Unknown 12/31/2022 9:23 AM SUPPLY CHAIN INTERN 12/31/2022 Narrative Resulting Agency Comment Lab Testing performed at: [facility] [id number] [facility] [id number] Juan Tarango MD LAB - CHEMISTR Y ORDERABLES Final Result [facility] INSURANCE BILL [address] [place] [address] from Last 3 Months or Most Recently Relevant to Health Maintenance Insurance [employer] Care Teams Keno Dealer Relationship Specialty Start Date End Date Rhoda Lugo PA [address] [place] [address] PCP - General Physician Filing Machine Operator 09/09/23
--- OUTSIDE RECORDS SUMMARY | 2025-03-17 13:43 | XMS_ITS | Encounter Summary ---
Author Organization [facility] Address [address] [place] [address] Phone Care Team Providers Care Business Services Clerk Name Role Phone Rhoda Pacheco Primary Care Pr ovider Hakan Covarrubias DO Unavailable Encounter Details Date Type Department Care Team (Late st Contact Info) Description 10/24/2022 Telephone [facility] Department of Surgery [address] Advanced Medicine [address]th [place] [address] [place] [address] Tori Smith RMA Social History Tobacco Use Types Packs/Day Years Used Date Smoking Tobacco: Never Smokeless Tobacco: Never Alcohol Use Standard Drinks/Week Comments Not Currently 0 (1 standard drink = 0.6 oz pur e alcohol) AUDIT-C Answer Date Recorded Q1: How often do you have a drink containing alc ohol? 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
--- OUTSIDE RECORDS SUMMARY | 2025-03-17 13:43 | XMS_ITS | Encounter Summary ---
Author Organization [facility] Address [address] [place] [address] Care Team Providers Care Compress Engineer Name Role Phone Rhoda Lugo Primary Care Pr ovider Encounter Details Date Type Department Care Team (Late st Contact Info) Description 12/20/2022 Lab Requisition [facility] [address] [place] [address] Rhoda Lugo PA [address] [place] [address] Social History Tobacco Use Types Packs/Day Years Used Date Smoking Tobacco: Never Smokeless Tobacco: Never Alcohol Use Standard Drinks/Week Comments Not Asked 0 (1 standard drink = 0.6 oz pure alcohol) RARE- states was never really a drinker Sex and Gender Information Value Date Recorded Sex Assigned at Not on file Legal Sex Male 9:09 AM RECHARGER Gender Identity Not on file Sexual Orientation Not on file documented as of this encounter Plan of Treatment Not on file documented as of this encounter Goals Goal Patient Goal Type Associated Problems Recent Progress Patient-Stated? Author Medication Management General On track( 023 2:12 PM RECHARGER) No Tess Cruz, RN Note: Expected end date: ongoing Interventions: Take all medications as prescribed Let your doctor know right away about any changes in your medications Make sure to request a refill of your medication at least one week prior to your last dose documented as of this encounter Procedures Procedure Name Priority Date/Time Associated Diagnosis Comments CBC W AUTO DIFFERENTIAL STAT 12/20/2022 9:00 AM RECHARGER BASIC METABOLIC PANEL (CALCIUM TOTAL) STAT 12/20/2022 9:00 AM RECHARGER B-TYPE NATRIURETIC PEPTIDE STAT 12/20/2022 9:00 AM RECHARGER HEPATIC FUNCTION PANEL STAT 12/20/2022 9:00 AM RECHARGER documented in this encounter Results * (ABNORMAL) BASIC METABOLIC PANEL (CALCIUM TOTAL) (12/20/2022 9:00 AM RECHARGER) Glucose 90 70 - 105 mg/dL 12/20/2022 11:37 AM [facility] Sodium 142 136 - 145 mmol/L 12/20/2022 11:37 AM [facility] Potassium 4.0 3.5 - 5.1 mmol/L 12/20/2022 11:37 AM [facility] Chloride 113(H) 98 - 107 mmol/L 12/20/2022 11:37 AM [facility] CO2 21(L) 23 - 31 mmol/L 12/20/2022 11:37 AM [facility] Calcium 7.9(L) 8.4 - 10.4 mg/dL 12/20/2022 11:37 AM [facility] Anion Gap 8 8 - 18 mmol/L 12/20/2022 11:37 AM [facility] BUN 6(L) 8.4 - 25.7 mg/dL 12/20/2022 11:37 AM [facility] Creatinine 0.68(L) 0.72 - 1.25 mg/dL 12/20/2022 11:37 AM [facility] eGFR by CKD-EPI >90 >=90 mL/min/1.7 3 m2 12/20/2022 11:37 AM [facility] Blood BLOOD SPECIMEN / Unknown Venipuncture / Unknown 12/20/2022 9:00 AM RECHARGER 12/20/2022 11:12 AM RECHARGER us Rhoda RICHARDSON LAB - CHEMISTRY ORDERABLES Final Result [facility] [address] [place], [place] [id number] * (ABNORMAL) HEPATIC FUNCTION PANEL (12/20/2022 9:00 AM [facility]) [facility] Alkaline Phosphatase 275(H) 40 - 150 U/L 12/20/2022 11:55 AM [facility] ALT 27 0 - 61 U/L 12/20/2022 11:55 AM [facility] AST 38(H) 5 - 34 U/L 12/20/2022 11:55 AM [facility] Protein Total 5.5(L) 6.4 - 8.3 gm/dL 12/20/2022 11:55 AM [facility] Albumin 2.9(L) 3.2 - 4.6 gm/dL 12/20/2022 11:55 AM [facility] Bilirubin Total 2.0(H) 0.2 - 1.2 mg/dL 12/20/2022 11:55 AM [facility] Bilirubin Direct 1.28(H) 0.10 - 0.50 mg/dL 12/20/2022 11:55 AM [facility] Blood BLOOD SPECIMEN / Unknown Venipuncture / Unknown 12/20/2022 9:00 AM RECHARGER 12/20/2022 11:12 AM [facility] us Rhoda RICHARDSON LAB - CHEMISTRY ORDERABLES Final Result Performing Organization Address City/State/[facility] Co de Phone Number [facility] [address] [place], [place] [id number] * (ABNORMAL) CBC WITH DIFFERENTIAL (12/20/2022 9:00 AM [facility]) [facility] WBC 3.0(L) 4.4 - 10.7 x10E9/L 12/20/2022 11:34 AM [facility] WBC Corrected 12/20/2022 11:34 AM [facility] RBC 3.30(L) 3.80 - 5.40 x10E12/L 12/20/2022 11:34 AM [facility] Hemoglobin 8.6(L) 12.0 - 17.6 gm/dL 12/20/2022 11:34 AM [facility] Hematocrit 29.0(L) 35.2 - 51.7 % 12/20/2022 11:34 AM [facility] MCV 87.9 80.7 - 98.3 fl 12/20/2022 11:34 AM [facility] MCH 26.1(L) 26.7 - 34.0 pg 12/20/2022 11:34 AM [facility] MCHC 29.7(L) 30.8 - 35.9 gm/dL 12/20/2022 11:34 AM [facility] Platelet Count 74(L) 153 - 416 x10E9/L 12/20/2022 11:34 AM [facility] RDW-CV 18.0(H) 12.1 - 14.9 % 12/20/2022 11:34 AM [facility] Neutrophils % 56.3 44.0 - 73.0 % 12/20/2022 11:34 AM [facility] Lymphocytes % 20.0 20.0 - 43.0 % 12/20/2022 11:34 AM [facility] Monocytes % 13.6(H) 5.0 - 13.0 % 12/20/2022 11:34 AM [facility] Eosinophils % 8.8(H) 0.0 - 6.0 % 12/20/2022 11:34 AM [facility] Basophils % 1.0 0.0 - 2.0 % 12/20/2022 11:34 AM [facility] Immature Granulocytes 0.3 0 - 1 % 12/20/2022 11:34 AM [facility] Neutrophil Absolute 1.66(L) 2.01 - 7.14 x10E9/L 12/20/2022 11:34 AM [facility] Lymphocytes Absolute 0.59(L) 1.07 - 3.94 x10E9/L 12/20/2022 11:34 AM [facility] Monocytes Absolute 0.40 0.26 - 1.07 x10E9/L 12/20/2022 11:34 AM [facility] Eosinophils Absolute 0.26 0 - 0.47 x10E9/L 12/20/2022 11:34 AM [facility] Basophils Absolute 0.03 0 - 0.08 x10E9/L 12/20/2022 11:34 AM [facility] Immature Granulocytes Absolute 0.01 0.00 - 0.06 x10E9/L 12/20/2022 11:34 AM RECHARGER [facility] nRBC Auto 0 /100 WBC 12/20/2022 11:34 AM RECHARGER [facility] Blood BLOOD SPECIMEN / Unknown Venipuncture / Unknown 12/20/2022 9:00 AM RECHARGER 12/20/2022 11:12 AM RECHARGER us Rhoda RICHARDSON LAB - HEMATOLOGY ORDERABLES Final Result Performing Organization Address City/[facility]/ZIP Co de Phone Number [facility] [address] [place] [address] * (ABNORMAL) B-TYPE NATRIURETIC PEPTIDE (12/20/2022 9:00 AM RECHARGER) BNP 255(H) <=100 pg/mL 12/20/2022 11:43 AM RECHARGER [facility] Blood BLOOD SPECIMEN / Unknown Venipuncture / Unknown 12/20/2022 9:00 AM RECHARGER 12/20/2022 11:12 AM RECHARGER Narrative [facility] - 12/20/2022 11:43 AM RECHARGER A cutoff of 100 pg/mL has been demonstrated to provide the maximal combination of sensitivity, specificity, and negative predictive value for contributing to the diagnosis of congestive heart failure (CHF) only. A B-Type Natriuretic Peptide (BNP) value greater than or equal to 100 pg/mL is consistent with a diagnosis of CHF in the appropriate clinical setting. False positive results are more common in females greater than 75 years of age. Blood concentrations of natriuretic peptides may also be elevated in patients with myocardial infarction and in patients who are candidates for or are undergoing renal dialysis. us Rhoda RICHARDSON LAB - CHEMISTRY ORDERABLES Final Result Performing Organization Address City/[facility]/ZIP Co de Phone Number [facility] [address] [place] [phone] documented in this encounter Visit Diagnoses Not on filedocumented in this encounter Care Teams Compress Engineer Relationship Specialty Start Date End Date Rhoda Lugo PA [address] [place] [address] PCP - General Physician Stitch Wheeler 09/09/23 documented as of this encounter
--- NOTE | 2025-03-17 16:00 | WPDPFTINT ---
PFT Procedure Performed PFT Procedure Performed Spirometry with Pre/Post Bronchodilator Plethysmography (Lung Vol) Diffusing Cap (DLCO) Flow Vol Loop PFT Interpretation This is a pulmonary function test with pre and post-bronchodilator spirometry, plethysmography and diffusing capacity. The test was performed and results interpreted in accordance with the 2019 and 2005 ATS/ERS Task Force guidelines respectively using the Global Lung Function Initiative-2012 reference equations. Patient demonstrated good effort and cooperation. Reproducibility criteria were met. The quality of the pre bronchodilator spirometry maneuver was Grade A and post bronchodilator spirometry maneuver was Grade A. Findings: Spirometry: There is decreased maximal expiratory airflow at all lung volumes with a concave expiratory flow tracing. The contour the inspiratory flow tracing is normal. The pre bronchodilator FVC is 3.30 L, 73% predicted. The pre bronchodilator FEV1 is 2.14 L, 62% predicted. The pre bronchodilator FEV1: FVC ratio 65%. The post bronchodilator FVC is 3.48 L, representing a 6% increase. The post bronchodilator FEV1 is 2.37 L, representing an 11% increase. The post bronchodilator FEV1: FVC ratio 68%. Plethysmography: The total lung capacity is 5.62 L, 80% predicted. The functional residual capacity is 2.83 L, 77% predicted. The residual volume is 2.33 L, 100% predicted. Diffusing capacity: The diffusing capacity unadjusted for hemoglobin and carboxyhemoglobin is 20.0, 73% predicted. Diffusing capacity adjusted for alveolar volume is 3.78, 92% predicted. Impression: There is a moderate obstructive abnormality. There is no significant improvement after inhaling a single dose of albuterol. The lung volumes are normal. The diffusing capacity is normal. There are no prior studies for comparison
== END 2025-03-17 13:32 | disposition home or self-care (01) ==
LOC: ANHPFT 13:32
PROVIDERS: PCP Physician Assistant; Visit Provider Physician Assistant
DX: J45.909 Unspecified asthma, uncomplicated (principal); R94.2 Abnormal results of pulmonary function studies
CPT/HCPCS: 94060; 94726; 94729